=== PATIENT | female | born 1985 | race Caucasian/White ===

== ENCOUNTER → 2023-03-17 09:50 | Outpatient (BNVA) | payer OTHER, SELFPAY | PROVIDERS: PCP Pediatrics; Visit Provider Physician Assistant Surgical | DX: Z13.89 Encounter for screening for other disorder (principal) ==

== ENCOUNTER → 2023-03-19 12:51 | Outpatient (BNVA) | payer OTHER, SELFPAY | PROVIDERS: PCP Pediatrics; Visit Provider Physician Assistant Surgical | DX: Z13.89 Encounter for screening for other disorder (principal) ==

== ENCOUNTER → 2023-04-07 09:57 | Outpatient (REF) | payer OTHER, SELFPAY ==
--- NOTE | 2023-04-07 11:12 | ECG_ITS ---
Test Reason : obesity Blood Pressure : / mmHG Vent. Rate : 072 BPM Atrial Rate : 072 BPM P-R Int : 160 ms QRS Dur : 096 ms QT Int : 404 ms P-R-T Axes : 033 057 014 degrees QTc Int : 442 ms Normal sinus rhythm Minimal voltage criteria for LVH, may be normal variant ( Sokolow-Vaughn ) Nonspecific ST abnormality Abnormal ECG No previous ECGs available Referred By: Veena Vasquez Electronically Signed By:Prashanth Bro
== END ==
LOC: HO.CARD 09:57
PROVIDERS: Absent Provider Physician Assistant Surgical; PCP Pediatrics; Visit Provider Dietitian, Registered
DX: E11.9 Type 2 diabetes mellitus without complications (principal); E55.9 Vitamin D deficiency, unspecified; E78.00 Pure hypercholesterolemia, unspecified; K21.9 Gastro-esophageal reflux disease without esophagitis; K58.9 Irritable bowel syndrome, unspecified; N39.3 Stress incontinence (female) (male); E66.9 Obesity, unspecified
CPT/HCPCS: 93005; 97802

== ENCOUNTER 2023-04-09 10:51 | Outpatient (REF) | payer OTHER, SELFPAY ==
[2023-04-10 13:00] LABS: H Pylori Breath Test Negative (Negative)
== END 2023-04-09 10:52 | disposition home or self-care (01) ==
LOC: HO.LNP 10:51
PROVIDERS: PCP Pediatrics; Visit Provider Physician Assistant Surgical
DX: E66.9 Obesity, unspecified (principal); K21.9 Gastro-esophageal reflux disease without esophagitis; E11.9 Type 2 diabetes mellitus without complications
CPT/HCPCS: 83013

== ENCOUNTER 2023-05-18 08:14 | Outpatient (REF) | payer OTHER, SELFPAY ==
--- NOTE | ~2023-05-18 | FL_ITS ---
EXAMINATION: XR FLUOROSCOPY UPPER GI WITH AIR CLINICAL INFORMATION: Obesity. COMPARISON: None available. TECHNIQUE: Routine upper GI air-contrast study was performed. FINDINGS: Following oral demonstration of thick barium and effervescent granules there is normal propagation bolus from the oral cavity through the pharynx, esophagus into stomach without any evidence of obstruction, narrowing or stricture. On placing patient supine and prone lying the course, caliber and peristalsis of the stomach, duodenal bulb and the sweep is normal. The mucosal pattern of stomach, duodenal bulb and sweep is normal. FLUOROSCOPY TIME: 1.1 minute DOSE AREA PRODUCT: 23.340 uGy-m2 (microgray-meter squared) FL/FL upper GI w air IMPRESSION: Unremarkable upper GI air-contrast study.
--- NOTE | ~2023-05-18 | US_ITS ---
EXAMINATION: US COMPLETE ABDOMEN WITH LIVER ELASTOGRAPHY CLINICAL INFORMATION: Obesity. COMPARISON: None available. TECHNIQUE: Real-time imaging of the abdominal viscera. Noninvasive ultrasound liver fibrosis assessment is performed using [employer] point quantification shear wave elastography (2D-SWE) with a C5-2 MHz transducer. Multiple elastography samples are obtained. FINDINGS: PANCREAS: Normal. The visualized pancreatic head and body are normal in appearance. The remainder of the pancreas is obscured from visualization by the overlying bowel gas. ABDOMINAL AORTA: The proximal, middle, and distal aortic segments are normal in caliber. INFERIOR VENA CAVA: Visualized portions are normal. LIVER: The liver demonstrates normal size, contour and increased echogenicity, with pericholecystic sparing. No focal lesion or intrahepatic biliary duct dilatation. The right lobe measures 19.7 cm in length. The left lobe measures 11.7 cm in length. Portal flow is towards the liver (hepatopetal). Shear wave liver elastography median stiffness is 1.59 m/s (reference: normal median stiffness is 1.3 m/s or less). IQR/median stiffness to assess sampling precision is 0.04 (reference: good quality data set is IQR/median stiffness of 0.15 or less). GALLBLADDER: Normal. The gallbladder is physiologically distended without evidence of stones, sludge, polyps, wall thickening or pericholecystic fluid. COMMON BILE DUCT: Normal in caliber measuring 0.5 cm in diameter. RIGHT KIDNEY: Normal. No hydronephrosis. No renal calculi or focal parenchymal lesions. The kidney measures 12.2 cm in maximum dimension. LEFT KIDNEY: Normal. No hydronephrosis. No renal calculi or focal parenchymal lesions. The kidney measures 11.5 cm in maximum dimension. SPLEEN: Normal. The spleen measures 11.7 cm in maximum dimension. FREE FLUID: None. US/US abdomen comp w elastography IMPRESSION: 1. There is generalized increase in hepatic echotexture, consistent with fatty infiltration or hepatocellular disease. Please correlate clinically. Characteristic pericholecystic sparing favors fatty infiltration. No focal hepatic mass or intrahepatic biliary dilatation is seen. 2. There is hepatomegaly. 3. Liver elastography: In the absence of other known clinical signs, measurements rule out compensated advanced chronic liver disease. If there are known clinical signs, further testing may be needed for confirmation. REFERENCE: Society of Radiologists in Ultrasound Liver Stiffness Thresholds (2020): LIVER STIFFNESS THRESHOLDS: *Liver Stiffness equal or less than 1.3 m/s: High probability of being normal. *Liver Stiffness less than 1.7 m/s: In the absence of other known clinical signs, rules out compensated advanced chronic liver disease. *Liver Stiffness 1.7-2.1 m/s: Suggestive of compensated advanced chronic liver disease but need further test for confirmation. *Liver Stiffness over 2.1 m/s: Rules in compensated advanced chronic liver disease. *Liver Stiffness over 2.4 m/s: Suggestive of clinically significant portal hypertension. QUALITY OF DATA SET: *IQR/Median value equal or less than 0.15 implies a quality data set. *IQR/Median value over 0.15 implies a poor quality data set. SIGNIFICANT CHANGE FROM PRIOR EXAM: Significant change if liver stiffness measurement is 10% or greater from prior exam. OTHER CONSIDERATIONS: The stage of liver fibrosis may be overestimated in the setting of acute hepatitis, liver inflammation, elevated liver function tests, hepatic vascular congestion, obstructive cholestasis, non-fasting state, and infiltrative diseases such as amyloidosis and lymphoma. In some patients with NAFLD, the liver stiffness thresholds for compensated advanced chronic liver disease may be lower. In causes other than viral hepatitis and NAFLD, liver stiffness thresholds are not well established.
== END 2023-05-18 08:15 | disposition home or self-care (01) ==
LOC: HO.US 08:14
PROVIDERS: PCP Pediatrics; Visit Provider Physician Assistant Surgical
DX: E28.2 Polycystic ovarian syndrome (principal); E66.9 Obesity, unspecified; K21.9 Gastro-esophageal reflux disease without esophagitis; K58.9 Irritable bowel syndrome, unspecified; N39.3 Stress incontinence (female) (male); E11.9 Type 2 diabetes mellitus without complications; E78.00 Pure hypercholesterolemia, unspecified
CPT/HCPCS: 74246; 76705; 76981

== ENCOUNTER 2023-06-22 08:20 | Outpatient (AMB) | payer OTHER, SELFPAY ==
--- NOTE | 2023-06-22 08:24 | MHC.OFFVISWM ---
Intake VS Expanded 06/22/23 08:34 Height 5 ft 2 in Weight 195 lb BMI 35.7 BP 122/68 Blood Pressure Location Rt brachial Blood Pressure Position Sitting Pulse 74 Pulse Source Pulse Oximeter Temp 97.5 F Temperature Source Temporal Artery Scan Pulse Oximetry 98 Oxygen Delivery Method Room Air Body Fat 77.6 Body Fat Percentage 39.8 Free Fat Mass 117.2 Muscle Mass 111.4 Visceral Mass 9.0 Water Mass 84.0 BMR 1,630 Intake Visit Reasons: (OV) F/U SWL Allergies acetaminophen [From Percocet] Allergy (Verified 06/22/23 08:33) Hives bupropion [From Wellbutrin] Allergy (Verified 06/22/23 08:33) Hives oxycodone [From Percocet] Allergy (Verified 06/22/23 08:33) Hives pneumococcal vaccine [From Pneumovax-] Adverse Reaction (Mild, Verified 06/22/23 08:33) Migraine Medication List - Last Reconciled 06/22/23 by JALEN Cohn CPAP (CPAP Machine/Device) As directed dexmethylphenidate (Focalin) 30 mg PO DAILY empagliflozin (Jardiance) 10 mg PO DAILY iron,carbonyl-vitamin C 65 mg iron- 125 mg (Vitron-C) 1 tab PO DAILY metformin 1,000 mg PO BID omeprazole 20 mg PO DAILY PRN sertraline (Zoloft) 200 mg PO DAILY [VITAMIN D3 50 mcg PO] HPI HPI Comments History of Present Illness Details The patient is a pleasant 38 year old female who returns to the clinic for pre-operative surgical weight loss management.? They were last seen in the office on 04/26/2023, recorded weight at that time was 186.2 pounds, with a BMI of 34.1.? Today's weight is 195 pounds and BMI is 35.7.? There has been a weight loss of 7.4 pounds since initiating the surgical weight loss program on 03/19/2023 with a total body weight loss of 3.66% Pre op work up completed as follows: SWL classes:? 06/29 BH appts: cleared 04/21? ?? RD appts: cleared Labs: 03/25, Vit D 27.9, fasting glucose 152, CRP 1.9, albumin 5.1, AST 55, ALT 49, HgbA1C 7.3, total chol 249, TG 215, HDL 32, LDL 174 H. pylori: negative CXR: 03/25, no acute cardiopulmonary process EKG: Normal sinus rhythm, Minimal voltage criteria for LVH, may be normal variant, Nonspecific ST abnormality ABD U/S: 05/18, fatty infiltration UGI: 05/18, unremarkable Pt reports that her dog recently had to be put to sleep, was very unexpected. Did not follow the plan. Has not been monitoring blood sugars. Got a bad yeast infection and stopped taking Jardiance, seeing PCP next week and will discuss. Current meal plan includes: 2 Premier Protein shakes ([employer], [employer], [employer]), (1 scoop in 8oz vanilla unsweetened almond milk each) at 7-9am and 2-4pm, and 2 protein bars (Pure or FitCrunch) at 10:30am-12:30pm and 7-9pm per day and dinner at 5:30pm (6 forks of protein and up to 12 forks of salad/vegetables).?Sometimes will have a Hungarian yogurt cup in place of one protein bar. Drinking adequate water- at least 50oz Current exercise plan includes: hiking, treadmill- 3.3 mph with changing inclines 3-10, 30-60min?? has been exercising less on treadmill but bought exercise bike, has been using that ? PFSH Surgical History History of removal of ovarian cyst History of surgical removal of ganglion cyst Hx of tonsillectomy Hx of wisdom tooth extraction Family History Mother Hypertension High cholesterol Breast cancer Macular degeneration Father Behcet's disease History of multiple strokes Brother TBI (traumatic brain injury) Osteoporosis Brother No problems noted. Brother No problems noted. Daughter PFAPA syndrome Son Stroke (cerebrum) Social History Alcohol intake: never Patient Tobacco Use Status: Never used Tobacco Physical Exam Vital Signs: Last Vital Signs Temp 97.5 F 06/22/23 08:34 Pulse 74 06/22/23 08:34 BP 122/68 06/22/23 08:34 Pulse Ox 98 06/22/23 08:34 Oxygen Delivery Method Room Air 06/22/23 08:34 BMI result Body Mass Index 35.7 Assessment & Plan Assessment & Plan (1) Obesity: Code(s): E66.9 - Obesity, unspecified (2) Type 2 diabetes mellitus: Code(s): E11.9 - Type 2 diabetes mellitus without complications (3) High cholesterol: Code(s): E78.00 - Pure hypercholesterolemia, unspecified (4) Sleep apnea: Code(s): G47.30 - Sleep apnea, unspecified (5) PCOS (polycystic ovarian syndrome): Code(s): E28.2 - Polycystic ovarian syndrome (6) GERD (gastroesophageal reflux disease): Code(s): K21.9 - Gastro-esophageal reflux disease without esophagitis (7) Generalized anxiety disorder: Code(s): F41.1 - Generalized anxiety disorder (8) Vitamin D deficiency: Code(s): E55.9 - Vitamin D deficiency, unspecified (9) IBS (irritable bowel syndrome): Code(s): K58.9 - Irritable bowel syndrome without diarrhea Plan Pt will return to meal plan and increase exercise as before. All preop testing completed. Will discuss borderline EKG results with Dr. Mckeon to determine if pt should have further workup. Once she resumes weight loss and gets closer to goal of 10% weight loss can schedule visit with Dr Han HIGGINBOTHAM 2 weeks per pt preference. Patient is obese and is not considered stable at this time. I spent a total of 30 minutes reviewing/updating records, examining the patient and counseling the patient on weight management as detailed above. Coding Level of Care Code Est Pt Level 4 (97769) Diagnoses Obesity E66.9 Type 2 diabetes mellitus E11.9 High cholesterol E78.00 Sleep apnea G47.30 PCOS (polycystic ovarian syndrome) E28.2 GERD (gastroesophageal reflux disease) K21.9 Generalized anxiety disorder F41.1 Vitamin D deficiency E55.9 IBS (irritable bowel syndrome) K58.9
[2023-06-22 08:34] VITALS: BP 122/68; PULSE 74; TEMP 36.4; O2SAT 98; BMI 35.7
== END 2023-06-22 09:08 | disposition home or self-care (01) ==
PROVIDERS: PCP Pediatrics; Visit Provider Physician Assistant Surgical
DX: E66.9 Obesity, unspecified (principal); Z68.35 Body mass index [BMI] 35.0-35.9, adult; E11.9 Type 2 diabetes mellitus without complications; G47.30 Sleep apnea, unspecified
CPT/HCPCS: 99214

== ENCOUNTER → 2023-07-09 09:00 | Outpatient (REF) | payer OTHER, SELFPAY ==
--- NOTE | 2023-07-09 09:02 | CA_ITS ---
Acquisition Time: 2023-07-09 09:44:55 Total Exercise Time: 00:09:16 Test Indications: ABNORMAL EKG Medications: Protocol: SELMA Max HR: 179 BPM 98% of Pred: 182 BPM Max BP: 160/070 mmHG Max Work Load: 10.5 METS Exercuse stress test exercise 9 min 16 sec of Sel[place] protocol achieving 96% MPHR and 10.5 METs, without anginal symptoms, without arrhythmias, with normotensive response to exercise, without EKG changes. Test reviewed with Dr. Grier Referred By: Veena Vasquez Overread By: Zonia Foss
== END ==
LOC: HO.CARD 09:00
PROVIDERS: PCP Pediatrics; Visit Provider Physician Assistant Surgical
DX: R94.31 Abnormal electrocardiogram [ECG] [EKG] (principal)
CPT/HCPCS: 93017

== ENCOUNTER → 2023-07-09 09:02 | Outpatient (BNV) | payer OTHER, SELFPAY | PROVIDERS: PCP Pediatrics; Visit Provider Nurse Practitioner | DX: R94.31 Abnormal electrocardiogram [ECG] [EKG] (principal) | CPT/HCPCS: 93016; 93018 ==

== ENCOUNTER 2023-08-05 11:23 | Outpatient (AMB) | payer OTHER, SELFPAY ==
--- NOTE | 2023-08-05 11:42 | MHC.OFFVIS ---
Intake Intake Visit Reasons: (OV) F/U SWL Allergies acetaminophen [From Percocet] Allergy (Verified 06/22/23 08:33) Hives bupropion [From Wellbutrin] Allergy (Verified 06/22/23 08:33) Hives oxycodone [From Percocet] Allergy (Verified 06/22/23 08:33) Hives pneumococcal vaccine [From Pneumovax-23] Adverse Reaction (Mild, Verified 06/22/23 08:33) Migraine PFSH Surgical History History of removal of ovarian cyst History of surgical removal of ganglion cyst Hx of tonsillectomy Hx of wisdom tooth extraction Family History Mother Hypertension High cholesterol Breast cancer Macular degeneration Father Behcet's disease History of multiple strokes Brother TBI (traumatic brain injury) Osteoporosis Brother No problems noted. Brother No problems noted. Daughter PFAPA syndrome Son Stroke (cerebrum) Social History Alcohol intake: never Patient Tobacco Use Status: Never used Tobacco Coding
--- NOTE | 2023-08-05 11:43 | A.OFFVIS_ITS ---
Intake VS Expanded 08/05/23 11:57 Height 5 ft 2 in Weight 199 lb 3.2 oz BMI 36.4 BP 131/71 Blood Pressure Location Rt brachial Blood Pressure Position Sitting Pulse 73 Pulse Source Pulse Oximeter Temp 97.5 F Temperature Source Temporal Artery Scan Pulse Oximetry 97 Oxygen Delivery Method Room Air Body Fat 77.6 Body Fat Percentage 39.0 Free Fat Mass 121.4 Muscle Mass 115.4 Visceral Mass 9.0 Water Mass 86.8 BMR 1,682 Intake Visit Reasons: (OV) F/U SWL Allergies acetaminophen [From Percocet] Allergy (Verified 08/05/23 11:46) Hives bupropion [From Wellbutrin] Allergy (Verified 08/05/23 11:46) Hives oxycodone [From Percocet] Allergy (Verified 08/05/23 11:46) Hives pneumococcal vaccine [From Pneumovax-] Adverse Reaction (Mild, Verified 08/05/23 11:46) Migraine Medication List - Last Reconciled 08/05/23 by JALEN Cohn CPAP (CPAP Machine/Device) As directed dexmethylphenidate (Focalin) 30 mg PO DAILY empagliflozin (Jardiance) 10 mg PO DAILY iron,carbonyl-vitamin C 65 mg iron- 125 mg (Vitron-C) 1 tab PO DAILY metformin 1,000 mg PO BID omeprazole 20 mg PO DAILY PRN sertraline (Zoloft) 200 mg PO DAILY [VITAMIN D3 50 mcg PO] HPI HPI Comments History of Present Illness Details The patient is a pleasant 38 year old female who returns to the clinic for pre-operative surgical weight loss management.? They were last seen in the office on 06/22/2023, recorded weight at that time was 195 pounds.? Today's weight is 199.2 pounds and BMI is 36.4.? There has been a weight loss of 3.2 pounds since initiating the surgical weight loss program on 03/19/2023 with a total body weight loss of 1.58%. Reports that since last visit she was diagnosed with COVID, and daughter got a bad staph infection. Started fostering a dog. Pre op work up completed as follows: SWL classes:? 06/29 BH appts: cleared 04/21? ?? RD appts: cleared Labs: 5/4, Vit D 27.9, fasting glucose 152, CRP 1.9, albumin 5.1, AST 55, ALT 49, HgbA1C 7.3, total chol 249, TG 215, HDL 32, LDL 174 H. pylori: negative CXR: 03/25, no acute cardiopulmonary process EKG: Normal sinus rhythm, Minimal voltage criteria for LVH, may be normal variant, Nonspecific ST abnormality ABD U/S: 05/18, fatty infiltration UGI: 05/18, unremarkable Stress test 07/09: Exercise stress test exercise 9 min 16 sec of Jair protocol achieving 96% MPHR, and 10.5 METs, without anginal symptoms, without arrhythmias, with normotensive response to exercise, without EKG changes. Current meal plan includes: 2 Premier Protein shakes ([employer], [employer], [employer]), (1 scoop in 8oz vanilla unsweetened almond milk each) at 7-9am and 2-4pm, and 2 protein bars (Pure or FitCrunch) at 10:30am-12:30pm and 7-9pm per day and dinner at 5:30pm (6 forks of protein and up to 12 forks of salad/vegetables).?Sometimes will have a Persian yogurt cup in place of one protein bar. Drinking adequate water- at least 50oz Current exercise plan includes: hiking, treadmill- 3.3 mph with changing inclines 3-10, 30-60min, has a bike but having some knee issues so hasn't been using PFSH Surgical History Hx of wisdom tooth extraction History of surgical removal of ganglion cyst Hx of tonsillectomy History of removal of ovarian cyst Family History Mother Hypertension High cholesterol Breast cancer Macular degeneration Father Behcet's disease History of multiple strokes Brother TBI (traumatic brain injury) Osteoporosis Brother No problems noted. Brother No problems noted. Daughter PFAPA syndrome Son Stroke (cerebrum) Social History Alcohol intake: never Patient Tobacco Use Status: Never used Tobacco Physical Exam Vital Signs: Last Vital Signs Temp 97.5 F 08/05/23 11:57 Pulse 73 08/05/23 11:57 BP 131/71 08/05/23 11:57 Pulse Ox 97 08/05/23 11:57 Oxygen Delivery Method Room Air 08/05/23 11:57 BMI result Body Mass Index 36.4 Assessment & Plan Assessment & Plan (1) Obesity: Code(s): E66.9 - Obesity, unspecified (2) Type 2 diabetes mellitus: Code(s): E11.9 - Type 2 diabetes mellitus without complications (3) Sleep apnea: Code(s): G47.30 - Sleep apnea, unspecified (4) High cholesterol: Code(s): E78.00 - Pure hypercholesterolemia, unspecified Plan Per pt preference will adjust meal plan to the followin:30am-9:30am Premier shake with 1 scoop in 8oz unsweetened almond milk10:30am- 12:30pm Persian yogurt 2-4pm bar 5:30pm meal- 6 forks of protein, up to 12 forks salad/veg 7-9pm bar or yogurt She is going on a cruise August 28- so we discussed ways to ensure adequate protein intake. F/U 3-4 weeks, will add pt to my cancellation list. Patient is obese and is not considered stable at this time. I spent a total of 30 minutes reviewing/updating records, examining the patient and counseling the patient on weight management as detailed above. Coding Level of Care Code Est Pt Level 4 (22509) Diagnoses Obesity E66.9 Type 2 diabetes mellitus E11.9 Sleep apnea G47.30 High cholesterol E78.00
[2023-08-05 11:57] VITALS: BP 131/71; PULSE 73; TEMP 36.4; O2SAT 97; BMI 36.4
== END 2023-08-05 12:47 | disposition home or self-care (01) ==
PROVIDERS: PCP Pediatrics; Visit Provider Physician Assistant Surgical
DX: E66.9 Obesity, unspecified (principal); Z68.36 Body mass index [BMI] 36.0-36.9, adult; E11.9 Type 2 diabetes mellitus without complications; G47.30 Sleep apnea, unspecified; E78.00 Pure hypercholesterolemia, unspecified
CPT/HCPCS: 99214

== ENCOUNTER 2023-09-14 11:26 | Outpatient (AMB) | payer OTHER, SELFPAY ==
--- NOTE | 2023-09-14 11:28 | MHC.OFFVISWM ---
Intake VS Expanded 09/14/23 11:38 BP 130/70 Blood Pressure Location Rt brachial Blood Pressure Position Sitting Pulse 93 Pulse Source Pulse Oximeter Temp 97.6 F Temperature Source Temporal Artery Scan Pulse Oximetry 96 Oxygen Delivery Method Room Air Height 5 ft 2 in Weight 198 lb 3.2 oz BMI 36.2 Body Fat % 40.7 Body Fat Mass 80.6 Fat Free Mass 117.6 Visceral Fat Rating 9.0 Body Water % 42.4 Body Water Mass 84.0 Muscle Mass/Score 111.6 Basal Metabolic Rate/Score 1,638 Intake Visit Reasons: (OV) F/U SWL Allergies acetaminophen [From Percocet] Allergy (Verified 08/05/23 11:46) Hives bupropion [From Wellbutrin] Allergy (Verified 08/05/23 11:46) Hives oxycodone [From Percocet] Allergy (Verified 08/05/23 11:46) Hives pneumococcal vaccine [From Pneumovax-] Adverse Reaction (Mild, Verified 08/05/23 11:46) Migraine Medication List - Last Reconciled 09/14/23 by JALEN Cohn CPAP (CPAP Machine/Device) As directed dexmethylphenidate (Focalin) 30 mg PO DAILY empagliflozin (Jardiance) 10 mg PO DAILY iron,carbonyl-vitamin C 65 mg iron- 125 mg (Vitron-C) 1 tab PO DAILY metformin 1,000 mg PO BID omeprazole 20 mg PO DAILY PRN semaglutide (Ozempic) 0.25 mg subcut QWEEK sertraline (Zoloft) 200 mg PO DAILY [VITAMIN D3 50 mcg PO] HPI HPI Comments History of Present Illness Details The patient is a pleasant 38 year old female who returns to the clinic for pre-operative surgical weight loss management.? They were last seen in the office on 08/05/2023, recorded weight at that time was 199.2 pounds.? Today's weight is 198.2 pounds and BMI is 36.3.? There has been a weight loss of 4.2 pounds since initiating the surgical weight loss program on 03/19/2023 with a total body weight loss of 2.08%. Returned from cruise to [facility]. Was started on Ozempic 4 weeks ago, dose planning to increase on Wednesday. Pre op work up completed as follows: SWL classes:? 06/29 appts: cleared 04/21? ?? RD appts: cleared Labs: 03/25, Vit D 27.9, fasting glucose 152, CRP 1.9, albumin 5.1, AST 55, ALT 49, HgbA1C 7.3, total chol 249, TG 215, HDL 32, LDL 174 H. pylori: negative CXR: 03/25, no acute cardiopulmonary process EKG: Normal sinus rhythm, Minimal voltage criteria for LVH, may be normal variant, Nonspecific ST abnormality ABD U/S: 05/18, fatty infiltration UGI: 05/18, unremarkable Stress test 07/09: Exercise stress test exercise 9 min 16 sec of Jair protocol achieving 96% MPHR, and 10.5 METs, without anginal symptoms, without arrhythmias, with normotensive response to exercise, without EKG changes. Current meal plan includes: 2 Premier Protein shakes ([employer], [employer], [employer]), (1 scoop in 8oz vanilla unsweetened almond milk each) at 7-9am and 2-4pm, and 2 protein bars (Pure or FitCrunch) at 10:30am-12:30pm and 7-9pm per day and dinner at 5:30pm (6 forks of protein and 6 forks of salad/vegetables).? Drinking adequate water- at least 50oz Current exercise plan includes: hiking, treadmill- 3.3 mph with changing inclines 3-10, 30-60min, has a bike but having some knee issues so hasn't been using. Thinks treadmill workout burned about 220 calories. Also walks dog daily [facility] Surgical History Hx of wisdom tooth extraction History of surgical removal of ganglion cyst Hx of tonsillectomy History of removal of ovarian cyst Family History Mother Hypertension High cholesterol Breast cancer Macular degeneration Father Behcet's disease History of multiple strokes Brother TBI (traumatic brain injury) Osteoporosis Brother No problems noted. Brother No problems noted. Daughter PFAPA syndrome Son Stroke (cerebrum) Social History Alcohol intake: never Patient Tobacco Use Status: Never used Tobacco Assessment & Plan Assessment & Plan (1) Obesity: Code(s): E66.9 - Obesity, unspecified (2) Type 2 diabetes mellitus: Code(s): E11.9 - Type 2 diabetes mellitus without complications (3) High cholesterol: Code(s): E78.00 - Pure hypercholesterolemia, unspecified (4) Sleep apnea: Code(s): G47.30 - Sleep apnea, unspecified (5) GERD (gastroesophageal reflux disease): Code(s): K21.9 - Gastro-esophageal reflux disease without esophagitis (6) Vitamin D deficiency: Code(s): E55.9 - Vitamin D deficiency, unspecified (7) Abnormal EKG: Code(s): R94.31 - Abnormal electrocardiogram [ECG] [EKG] (8) PCOS (polycystic ovarian syndrome): Code(s): E28.2 - Polycystic ovarian syndrome Plan Discussed the importance of adherence to the meal plan to support the weight loss needed to achieve 10% TBWL. Reinforced meal plan: 2 Premier Protein shakes ([employer], [employer], [employer]), (1 scoop in 8oz vanilla unsweetened almond milk each) at 7-9am and 2-4pm, and 2 protein bars ([employer]Crunch) at 10:30am-12:30pm and 7-9pm per day and dinner at 5:30pm (6 forks of protein and 6 forks of salad/vegetables). No yogurt Needs to exercise for 2000 calories/ week. Track calories burned while walking dog to make sure her total calorie burn each day is close to 300. We discussed that she needs to be committed to the meal and exercise plan. If she can demonstrate acceptable weight loss between now and next visit, can schedule first visit with Dr. Mckeon as all of her preop testing is complete. She is aware that she should discuss Ozempic use with Dr. Mckeon at appt. RTC 1 month. Texted meal plan to pt. She will come in for weekly weight checks. Encouraged her to reach out to me between appts with any questions. Patient is obese and is not considered stable at this time. I spent a total of 30 minutes reviewing/updating records, examining the patient and counseling the patient on weight management as detailed above. Coding Level of Care Code Est Pt Level 4 (58328) Diagnoses Obesity E66.9 Type 2 diabetes mellitus E11.9 High cholesterol E78.00 Sleep apnea G47.30 GERD (gastroesophageal reflux disease) K21.9 Vitamin D deficiency E55.9 Abnormal EKG R94.31 PCOS (polycystic ovarian syndrome) E28.2
[2023-09-14 11:38] VITALS: BP 130/70; PULSE 93; TEMP 36.4; O2SAT 96; BMI 36.2
== END 2023-09-14 12:44 | disposition home or self-care (01) ==
PROVIDERS: PCP Pediatrics; Visit Provider Physician Assistant Surgical
DX: E66.9 Obesity, unspecified (principal); Z68.36 Body mass index [BMI] 36.0-36.9, adult; E78.00 Pure hypercholesterolemia, unspecified; G47.30 Sleep apnea, unspecified; K21.9 Gastro-esophageal reflux disease without esophagitis; E55.9 Vitamin D deficiency, unspecified; R94.31 Abnormal electrocardiogram [ECG] [EKG]; E28.2 Polycystic ovarian syndrome
CPT/HCPCS: 99214

== ENCOUNTER 2023-10-05 13:31 | Outpatient (AMB) | payer OTHER, SELFPAY ==
--- NOTE | 2023-10-05 13:35 | A.OFFVIS_ITS ---
Intake VS Expanded 10/05/23 13:46 BP 115/67 Blood Pressure Location Rt brachial Blood Pressure Position Sitting Pulse 102 H Pulse Source Pulse Oximeter Temp 97.0 F Temperature Source Tympanic Pulse Oximetry 98 Oxygen Delivery Method Room Air Height 5 ft 2 in Weight 193 lb BMI 35.3 Body Fat % 40.1 Body Fat Mass 77.4 Fat Free Mass 115.6 Visceral Fat Rating 9.0 Body Water % 42.9 Body Water Mass 82.6 Muscle Mass/Score 109.6 Basal Metabolic Rate/Score 1,608 Intake Visit Reasons: (OV) F/U SWL Allergies acetaminophen [From Percocet] Allergy (Verified 08/05/23 11:46) Hives bupropion [From Wellbutrin] Allergy (Verified 08/05/23 11:46) Hives oxycodone [From Percocet] Allergy (Verified 08/05/23 11:46) Hives pneumococcal vaccine [From Pneumovax-] Adverse Reaction (Mild, Verified 08/05/23 11:46) Migraine Medication List - Last Reconciled 10/05/23 by JALEN Cohn CPAP (CPAP Machine/Device) As directed iron,carbonyl-vitamin C 65 mg iron- 125 mg (Vitron-C) 1 tab PO DAILY metformin 1,000 mg PO BID omeprazole 20 mg PO DAILY PRN sertraline (Zoloft) 200 mg PO DAILY [VITAMIN D3 50 mcg PO] HPI HPI Comments History of Present Illness Details The patient is a pleasant 38 year old female who returns to the clinic for pre-operative surgical weight loss management.? They were last seen in the office on 09/14/2023, recorded weight at that time was 198.2 pounds.? Today's weight is 193 pounds and BMI is 35.3.? There has been a weight loss of 9.4 pounds since initiating the surgical weight loss program on 03/19/2023 with a total body weight loss of 4.64%. She continues on Ozempic. Since last visit pt developed abdominal pain and vomiting and had to go to [facility] ED. She was diagnosed with gastritis or gastroparesis due to Ozempic. Was put on the BRAT diet for 1 week to recover (rice, toast/bread). Has been able to restart her high protein meal plan. Pre op work up completed as follows: SWL classes:? 06/29 appts: cleared 04/21? ?? RD appts: cleared Labs: 03/25, Vit D 27.9, fasting glucose 152, CRP 1.9, albumin 5.1, AST 55, ALT 49, HgbA1C 7.3, total chol 249, TG 215, HDL 32, LDL 174 H. pylori: negative CXR: 03/25, no acute cardiopulmonary process EKG: Normal sinus rhythm, Minimal voltage criteria for LVH, may be normal variant, Nonspecific ST abnormality ABD U/S: 05/18, fatty infiltration UGI: 05/18, unremarkable Stress test 07/09: Exercise stress test exercise 9 min 16 sec of Jair protocol achieving 96% MPHR, and 10.5 METs, without anginal symptoms, without arrhythmias, with normotensive response to exercise, without EKG changes. Current meal plan includes: 2 Premier Protein shakes (1 scoop in 8oz vanilla unsweetened almond milk each) at 7-9am and 2-4pm 2 protein bars (FitCrunch) at 10:30am-12 :30pm and 7-9pm dinner at 5:30pm (6 forks of protein and 6 forks of salad/vegetables) Current exercise plan includes: treadmill, 1 hour for 450 calories, 4-5x/week. hikes, and walks dog daily PFSH Surgical History Hx of wisdom tooth extraction History of surgical removal of ganglion cyst Hx of tonsillectomy History of removal of ovarian cyst Family History Mother Hypertension High cholesterol Breast cancer Macular degeneration Father Behcet's disease History of multiple strokes Brother TBI (traumatic brain injury) Osteoporosis Brother No problems noted. Brother No problems noted. Daughter PFAPA syndrome Son Stroke (cerebrum) Social History Alcohol intake: never Patient Tobacco Use Status: Never used Tobacco Assessment & Plan Assessment & Plan (1) Obesity: Code(s): E66.9 - Obesity, unspecified (2) High cholesterol: Code(s): E78.00 - Pure hypercholesterolemia, unspecified (3) Type 2 diabetes mellitus: Code(s): E11.9 - Type 2 diabetes mellitus without complications (4) Sleep apnea: Code(s): G47.30 - Sleep apnea, unspecified (5) PCOS (polycystic ovarian syndrome): Code(s): E28.2 - Polycystic ovarian syndrome (6) GERD (gastroesophageal reflux disease): Code(s): K21.9 - Gastro-esophageal reflux disease without esophagitis (7) Abnormal EKG: Code(s): R94.31 - Abnormal electrocardiogram [ECG] [EKG] Plan Pt has done well in being more consistent with weight loss since last visit. All preop testing complete. Will refer to Dr. Mckeon for next visit for discussion of surgery. Pt aware that she will have to discuss Ozempic use with Dr. Mckeon. Patient is obese and is not considered stable at this time. I spent a total of 30 minutes reviewing/updating records, examining the patient and counseling the patient on weight management as detailed above. Coding Level of Care Code Est Pt Level 4 (54589) Diagnoses Obesity E66.9 High cholesterol E78.00 Type 2 diabetes mellitus E11.9 Sleep apnea G47.30 PCOS (polycystic ovarian syndrome) E28.2 GERD (gastroesophageal reflux disease) K21.9 Abnormal EKG R94.31
[2023-10-05 13:46] VITALS: BP 115/67; PULSE 102; TEMP 36.1; O2SAT 98; BMI 35.3
== END 2023-10-05 14:03 | disposition home or self-care (01) ==
PROVIDERS: PCP Pediatrics; Visit Provider Physician Assistant Surgical
DX: E66.9 Obesity, unspecified (principal); Z68.35 Body mass index [BMI] 35.0-35.9, adult; E78.00 Pure hypercholesterolemia, unspecified; E11.9 Type 2 diabetes mellitus without complications; G47.30 Sleep apnea, unspecified; E28.2 Polycystic ovarian syndrome; K21.9 Gastro-esophageal reflux disease without esophagitis; R94.31 Abnormal electrocardiogram [ECG] [EKG]
CPT/HCPCS: 99214

== ENCOUNTER 2023-10-25 08:15 | Outpatient (AMB) | payer OTHER, SELFPAY ==
--- NOTE | 2023-10-25 09:58 | A.OFFVIS_ITS ---
Intake VS Expanded 10/25/23 10:21 Height 5 ft 2 in Weight 190 lb 4 oz BMI 34.8 Body Fat % 44.2 Body Fat Mass 84.1 Fat Free Mass 106.2 Visceral Fat Rating 17 Body Water % 38.3 Body Water Mass 72.9 Basal Metabolic Rate/Score 1,395 Intake Visit Reasons: TV Consult/Transfer Veena Allergies acetaminophen [From Percocet] Allergy (Verified 10/25/23 09:58) Hives bupropion [From Wellbutrin] Allergy (Verified 10/25/23 09:58) Hives oxycodone [From Percocet] Allergy (Verified 10/25/23 09:58) Hives pneumococcal vaccine [From Pneumovax-] Adverse Reaction (Mild, Verified 10/25/23 09:58) Migraine Medication List - Last Reconciled 10/25/23 by David Hutchins MD CPAP (CPAP Machine/Device) As directed iron,carbonyl-vitamin C 65 mg iron- 125 mg (Vitron-C) 1 tab PO DAILY metformin 1,000 mg PO BID omeprazole 20 mg PO DAILY PRN sertraline (Zoloft) 200 mg PO DAILY [VITAMIN D3 50 mcg PO] HPI TV Consult/Transfer Veena HPI Details Start time: 9.37am, End time: 10.37am ?I spent 50 minutes speaking with the patient on the phone plus an additional 10 minutes reviewing and updating records for a total of 60 minutes HPI Comments History of Present Illness Details Overall weight loss: 12lbs, or 5.93% TBWL Is doing 2 Premier protein shakes (1 scoop in almond milk) 8-10am and 2pm-4pm, 2 Fit Crunch bars at 10.30-12.30pm and 7-9pm, dinner at 6pm (6 forks of protein and 6 forks of salad or vegetables) Exercise: is doing treadmill (speed: 3-3.5mph and incline 3-10) for 250-450 calories x 4-5 per week [facility] Medical History (Updated 10/25/23 @ 10:25 by David Hutchins MD) Anxiety Depression Obstructive sleep apnea on CPAP Surgical History Hx of wisdom tooth extraction History of surgical removal of ganglion cyst Hx of tonsillectomy History of removal of ovarian cyst Family History Mother Hypertension High cholesterol Breast cancer Macular degeneration Father Behcet's disease History of multiple strokes Brother TBI (traumatic brain injury) Osteoporosis Brother No problems noted. Brother No problems noted. Daughter PFAPA syndrome Son Stroke (cerebrum) Social History Alcohol intake: never Patient Tobacco Use Status: Never used Tobacco Assessment & Plan Assessment & Plan (1) Obesity: Code(s): E66.9 - Obesity, unspecified Qualifiers: Obesity type: due to excess calories Obesity classification: adult class 2 (BMI 35 - 39.9) Serious obesity comorbidity presence: with serious comorbidity Body mass index: BMI 35.0-35.9 Qualified Code(s): E66.01 - Morbid (severe) obesity due to excess calories; Z68.35 - Body mass index [BMI] 35.0- 35.9, adult Plan: 1. Plan for lap sleeve gastrectomy including upper GI endoscopy. All tests has been completed and reviewed and the patient is cleared for the surgery. ?If diaphragmatic or ventral hernias are present at time of surgery, these will be repaired laparoscopically as well. 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 I emphasized the importance of close follow-up, adherence to instructions and good communication. So far she has proven to be an excellent communicator and very compliant with all our directions accomplishing a great weight loss. I believe that she is an excellent candidate and she is ready. 2. Change nutritional plan to one Premier shake (HALF scoop in 8oz almond milk), another Premier protein shake (1 scoop in almond milk), 2 Fit Crunch bars and dinner at 6pm (6 forks of protein and 6 forks of salad or vegetables) 3. Exercise: continue treadmill with an incline of 4.0 and speed of 4.0. Increase incline by 1 every 3 min to a max incline of 10.0, stay 3min at 10.0 and then return to 4.0 and repeat same steps until calorie goal is met. Goal is to burn 2000 calories per week on exercise, which means either 300 calories daily, or 400 calories 5 days per week, or 500 calories 4 days per week, or 650 calories 3 days per week. 4. Continue to send me weight measurements weekly on Mondays Telehealth Telehealth Location of provider rendering services: practice address Location of patient: address on file Patient Identification confirmed using: Name, : Yes Telehealth method: voice only Patient verbally consented to treatment: Yes Patient verbally consented to billing insurance company: Yes Patient informed of any privacy concerns related to visit: Yes Minutes spent on Phone/Video with Pt.: 60 Coding Level of Care Code Tele Est Pt Level 5 (77211) Diagnoses Class 2 severe obesity due to excess calories with serious comorbidity and body mass index (BMI) of 35.0 to 35.9 in adult E66.01; Z68.35 Obesity type: due to excess calories Obesity classification: adult class 2 (BMI 35 - 39.9) Serious obesity comorbidity presence: with serious comorbidity Body mass index: BMI 35.0-35.9 Time Spent (min) 60
[2023-10-25 10:21] VITALS: BMI 34.8
== END 2023-10-25 10:38 | disposition home or self-care (01) ==
LOC: HO.HBS 08:15
PROVIDERS: PCP Pediatrics; Visit Provider Surgery
DX: E66.01 Morbid (severe) obesity due to excess calories (principal); Z68.34 Body mass index [BMI] 34.0-34.9, adult
CPT/HCPCS: 99215

== ENCOUNTER 2023-11-16 08:02 | Day surgery (SDC) | payer OTHER, SELFPAY ==
[2023-10-28 11:00] VITALS: BMI 34.6
[2023-10-29 09:17] LABS: MANUAL DIFF FLAG NO
[2023-10-29 10:02] LABS: Basophils Absolute Auto 0.1 X10*3/uL (0.0-0.2); Basophils Percent Auto 0.7 % (0-2); Eosinophils Absolute Auto 0.1 X10*3/uL (0.0-0.4); Eosinophils Percent Auto 1.1 % (0-4); Hemoglobin 12.3 g/dl (12.0-16.0); Imm Gran Abs Auto 0.04 X10*3/uL (0.00-0.03); Imm Gran Pct Auto 0.4 % (0.0-0.4); Lymphocytes Absolute Auto 2.6 X10*3/uL (1.2-4.9); Lymphocytes Percent Auto 24.7 % (20-40); Mean Corpuscular HGB Conc 33.2 g/dl (31.0-35.0); Mean Corpuscular Hemoglobin 29.3 pg (27.0-33.0); Mean Corpuscular Volume 88.1 fL (80.0-98.0); Mean Platelet Volume 12.4 fL (9.4-12.3); Monocytes Absolute Auto 0.6 X10*3/uL (0.1-1.2); Monocytes Percent Auto 5.4 % (2-11); Neutrophils Percent Auto 67.7 % (45-73); Platelet Count 248 X10*3/uL (160-400); Prothrombin Time 12.6 SEC (11.1-13.3); Red Cell Distribution Width 13.7 % (11.0-16.0); White Blood Count 10.4 X10*3/uL (4.8-10.8)
[2023-10-29 10:05] LABS: Partial Thromboplastin Time 32.7 SEC (26.0-36.4)
[2023-10-29 10:10] LABS: Estimated Average Glucose 140 mg/dL; Hemoglobin A1c % 6.5 % (<6.0)
[2023-10-29 11:12] LABS: Alanine Aminotransferase 21 U/L (0-31); Albumin Level 4.7 g/dL (3.5-5.0); Alkaline Phosphatase 70 U/L (39-117); Anion Gap 15 (12-20); Aspartate Amino Transferase 30 U/L (5-31); Bilirubin Total 0.4 mg/dL (0.0-1.0); Blood Urea Nitrogen 14 mg/dL (9-16); C Reactive Protein 1.55 mg/dL (< or = 0.50); Calcium 9.4 mg/dL (8.4-10.2); Carbon Dioxide 27 mmol/L (22-29); Chloride 102 mmol/L (96-108); Cholesterol 189 mg/dL (<200); Creatinine Clr Calc Pharmacy 96.8; Estimated Glomerular Filt Rate > 60; Glucose Random 120 mg/dL (60-115); HDL Cholesterol 31 mg/dL (>40); LDL Cholesterol Calculated 124 mg/dL (<100); Potassium 3.9 mmol/L (3.3-5.1); Sodium 140 mmol/L (135-145); Total Protein 8.2 g/dL (6.5-8.0); Triglycerides 174 mg/dL (<150)
[2023-10-29 11:14] LABS: Insulin 10 uU/mL (2-29); TSH reflex Free T4 0.48 uIU/mL (0.32-4.0)
--- NOTE | 2023-10-30 12:18 | MHC.SHP ---
Pre-Procedural Eval Section A Date of Service: 10/30/23 The patient is an INPATIENT: No The History & Physical has been completed within 30 days and I have reviewed it.: Yes Section B Chief Complaint: Obesity, unspecified Relevant Family History (Specify if Yes): No Relevant Social History: None Present Medications: None Medical History: No relevant PMH History of Previous Operations: No relevant previous surgery Allergies: Allergies Allergy/AdvReac Type Severity Reaction Status Date / Time bupropion [From Wellbutrin] Allergy Intermediate Hives Verified 10/28/23 10:57 oxycodone [From Percocet] Allergy Intermediate Hives, rash Verified 10/28/23 10:57 pneumococcal vaccine AdvReac Severe Migraine, Verified 10/28/23 10:57 [From Pneumovax-] weakness adhesive tape AdvReac Intermediate burning Verified 10/28/23 10:57 and redness of Skin Review of Systems Sugical H&P ROS: Negative: Constitution, Cardiovascular, Respiratory, Neurological, Psychiatric, Hem-Onc, Allergic/Immunologic, Gastrointestinal, Genitourinary, Musculoskeletal, Integumentary, Endocrine and Eyes/Ears/Nose/Throat Exam Surgical H&P Exam: Normal: HEENT, Normal: Heart, Normal: Lungs, Normal: Extremities, Normal: Abdomen, Normal: Skin and Normal: Neurological Plan Diagnosis/Plan: Unchanged I have reviewed the history and physical and performed a pertinent physical examination on my patient. No changes have occurred unless specified. Time Spent With Patient Time: Total time managing care of this patient today ____ minutes.
--- NOTE | 2023-11-01 08:25 | HO.ANESPROP2 ---
HPI - Anesthesia Eval Consult details Narrative: 38yo F for Gastrectomy Sleeve,EGD,poss diaphragmatic hernia,poss ventral hernia,poss open, PMFSH Active Problems Active Problems: All Active Problems (Updated 10/28/23 @ 15:38 by Juliana Moreno RN) BMI 35.0-35.9,adult (Acute) Abnormal EKG (Acute) GERD (gastroesophageal reflux disease) (Acute) PCOS (polycystic ovarian syndrome) (Acute) ADHD (Acute) Generalized anxiety disorder (Acute) Rosacea (Acute) IBS (irritable bowel syndrome) (Acute) Vitamin D deficiency (Acute) Stress incontinence (Acute) Sleep apnea (Acute) High cholesterol (Acute) Type 2 diabetes mellitus (Acute) Obesity (Acute) Anxiety (Acute) Depression (Acute) Obstructive sleep apnea on CPAP (Acute) Past Medical History Medical History (Updated 10/28/23 @ 15:38 by Juliana Moreno RN) Gastric reflux Diabetes CRISTIAN on CPAP Anxiety Depression Slow to wake up after anesthesia PCOS (polycystic ovarian syndrome) Anxiety Depression Obstructive sleep apnea on CPAP Family History Family History Mother Hypertension High cholesterol Breast cancer Macular degeneration Father Behcet's disease History of multiple strokes Brother TBI (traumatic brain injury) Osteoporosis Brother No problems noted. Brother No problems noted. Daughter PFAPA syndrome Son Stroke (cerebrum) Surgical History Surgical History Hx of wisdom tooth extraction History of surgical removal of ganglion cyst Hx of tonsillectomy History of removal of ovarian cyst Social History Social History (Updated 10/28/23 @ 10:58 by Juliana Moreno RN) Household Members: Family Housing: House Are you a primary resident care assistant to a significant other at home: Yes (10+11 year children) Do you presently have visiting nurse or other home services: No Alcohol intake: never Patient Tobacco Use Status: Never used Tobacco Use of substances other than those prescribed or required for medical reasons: No Have you been hit, kicked, punched, or otherwise hurt by someone within the past year? If so, by whom?: No Are you DNR?: No Advance Directives: No Advance Directives Information Provided: Yes Advance Directives on File: No Recently lost weight without trying: No Patient : No FDLMP: 10/28/2023 : No Poor oral hygiene: No Meds Allergies Allergy/AdvReac Type Severity Reaction Status Date / Time bupropion [From Wellbutrin] Allergy Intermediate Hives Verified 10/28/23 10:57 oxycodone [From Percocet] Allergy Intermediate Hives, rash Verified 10/28/23 10:57 pneumococcal vaccine AdvReac Severe Migraine, Verified 10/28/23 10:57 [From Pneumovax-] weakness adhesive tape AdvReac Intermediate burning Verified 10/28/23 10:57 and redness of Skin Home Medications Medication Instructions Recorded Confirmed Last Taken Type CPAP (CPAP Machine/Device) 03/17/23 10/25/23 Unknown History iron,carbonyl 65 mg-vitamin C 125 1 tab PO DAILY 03/17/23 10/28/23 Unknown History mg tablet,delayed release (Vitron-C) metformin 1,000 mg tablet 1,000 mg PO BID 03/17/23 10/28/23 Unknown History omeprazole 20 mg capsule,delayed 20 mg PO DAILY PRN 03/17/23 10/25/23 Unknown History release sertraline 100 mg tablet (Zoloft) 200 mg PO DAILY 04/09/23 10/28/23 Unknown History cholecalciferol (vitamin D3) 50 50 mcg PO DAILY 10/28/23 10/28/23 Unknown History mcg (2,000 unit) tablet (Vitamin D3) Exam Height,Weight and Vital Signs: Height 5 ft 2 in Weight 85.729 kg Pertinent Lab Results Pertinent Lab Results: Laboratory Tests 10/29/23 10/29/23 09:03 09:15 WBC 10.4 RBC 4.20 Hgb 12.3 Hct 37.0 MCV 88.1 MCH 29.3 MCHC 33.2 RDW 13.7 Plt Count 248 MPV 12.4 H Immature Gran % (Auto) 0.4 Neut % (Auto) 67.7 Lymph % (Auto) 24.7 [place] % (Auto) 5.4 Eos % (Auto) 1.1 Baso % (Auto) 0.7 Lymph # (Auto) 2.6 [place] # (Auto) 0.6 Eos # (Auto) 0.1 Baso # (Auto) 0.1 Abs Immat Gran (auto) 0.04 H Absolute Neuts (auto) 7.0 Absolute Nucleated RBC 0.000 Nucleated RBC % (auto) 0.0 PT 12.6 INR 1.0 APTT 32.7 Sodium 140 Potassium 3.9 Chloride 102 Carbon Dioxide 27 Anion Gap 15 BUN 14 Creatinine 0.80 Estim Creat Clear Calc 96.8 Estimated GFR > 60 Random Glucose 120 H Estimat Average Glucose 140 Hemoglobin A1c % 6.5 H Insulin Level 10 Calcium 9.4 Total Bilirubin 0.4 AST 30 ALT 21 Alkaline Phosphatase 70 C-Reactive Protein 1.55 H Total Protein 8.2 H Albumin 4.7 Triglycerides 174 H Cholesterol 189 LDL Cholesterol, Calc 124 H HDL Cholesterol 31 L TSH 0.48 Blood Type A Positive Antibody Screen NEGATIVE Narrative Narrative: EKG 03/2023 Vent. Rate : 072 BPM Atrial Rate : 072 BPM P-R Int : 160 ms QRS Dur : 096 ms QT Int : 404 ms P-R-T Axes : 033 057 014 degrees QTc Int : 442 ms Normal sinus rhythm Minimal voltage criteria for LVH, may be normal variant ( Sokolow-Vaughn ) Nonspecific ST abnormality Abnormal ECG No previous ECGs available Exercise Stress 06/2023 Protocol: JAIR Max HR: 179 BPM 98% of Pred: 182 BPM Max BP: 160/070 mmHG Max Work Load: 10.5 METS Exercuse stress test exercise 9 min 16 sec of Jair protocol achieving 96% MPHR and 10.5 METs, without anginal symptoms, without arrhythmias, with normotensive response to exercise, without EKG changes. Test reviewed with Dr. Grier Assessment and Plan Assessment Anesthesia Assessment: Chart Reviewed
[2023-11-16] VITALS (9 sets, daily range): BP systolic 130–148; BP diastolic 72–87; PULSE 70–99; RESP 14–20; TEMP 36.1–36.7; O2SAT 95–99; BMI 33.3
--- NOTE | 2023-11-16 07:39 | P.BOP_ITS ---
Brief Operative Note Date of Service: 11/16/23 Pre-op diagnosis: Severe obesity with comorbidities (see below) Post-op diagnosis: same (& abdominal adhesions) Procedure: INITIAL PATIENT BMI ON PRESENTATION AT OUR OFFICE: 37 kg/m2 LAST BMI BEFORE SURGERY: 35.1 kg/m2 COMORBIDITIES: sleep apnea on CPAP, non-insulin dependent diabetes, PCOS, ADHD, GERD, depression, anxiety liver fibrosis ?The patient presented to the Weight Management Program with significant obesity that was negatively impacting the patient's comorbidities as listed above.? The program is a phased program with a special focus on preoperative medical weight management to promote substantial weight loss and prepare the patients for the second phase of the program: bariatric surgery. The patient participated in an intensive weekly lifestyle ?intervention and exercise program during which the patient ?has lost between the initial office visit and the last preoperative visit 22.8 lbs, or 11.26% of initial actual body weight. It was deemed appropriate for the patient to now have bariatric surgery. In light of the current Covid-19 pandemic and the well documented strong association of obesity and increased risk of worse outcomes if infected with Covid-19 (REFERENCES: https://pubmed.ncbi.nlm.nih.gov/93312962/ ,? https://pubmed.ncbi.nlm.nih.gov/44162254/ ), any delay in undergoing bariatric surgery may lead to the patient's worsening health condition and increased?risk of more severe Covid-19 disease if infected. In addition a recent?study from [facility] published in [facility] on 11/17/2021 ([email or web address]) found that, among patients with obesity, substantial weight loss achieved with surgery was associated with improved outcomes of COVID-19 infection. The findings suggest that obesity can be a modifiable risk factor for the severity of COVID-19 infection. In addition, the patient met the BMI-criteria for bariatric surgery based on the BMI on initial presentation. The patient should not be penalized for achieving such weight loss because ?it is not sustainable long-term without surgical intervention and it was achieved in preparation for bariatric surgery ?under my direction and based on my published research ([email or web address]).[email or web address] and? https://www.soard.org/article/[email or web address](97)13415-X/pdf ) ?that a 10% preoperative weight loss improves long-term weight loss after surgery and reduces perioperative complications.? Insurance carriers such as [facility] have endorsed my recommendations ?and have included in their policies criteria to include a 10% preoperative weight loss requirement. PROCEDURE: Esophago-gastroscopy, laparoscopic lysis of adhesions, laparoscopic sleeve gastrectomy and laparoscopic gastropexy INDICATIONS: This is a 38 year-old female who was electively scheduled for laparoscopic, possibly open sleeve gastrectomy. The risks and complications of the procedure were discussed with the patient in advance, particularly the possibility of ; pulmonary embolism; staple line leak; bleeding; GERD; cardiac, pulmonary, or renal complications; as well as long-term problems such as insufficient weight loss, vitamin deficiency, strictures, or ulcers. The patient understood all the risks, and was in agreement to proceed with surgery. DESCRIPTION OF PROCEDURE: After informed consent was obtained from the patient, the patient was given preoperative antibiotics, and was transferred to the operating room. After successful induction of general anesthesia, pneumatic compression devices were placed on both lower extremities. An upper endoscopy was performed next. The oropharynx and esophagus appeared to be within normal limits. There was no diaphragmatic hernia present consistent with the findings of the preoperative upper GI. The stomach was entered. Then after all fluid and air were suctioned and the stomach was fully decompressed, the scope was withdrawn and secured in the mid esophagus. The patient was then prepped and draped in the usual sterile manner, and abdominal access was established at the right upper quadrant with the Astrid technique. A 12 mm blunt port was inserted, and the abdomen was insufflated with CO2 to a pressure of 15 mmHg. Under direct visualization, additional ports were placed, specifically two 5 mm Versi-step ports to the left upper quadrant, and a 5 mm Versi-Step port to the right upper quadrant. 1% lidocaine plain was used to infiltrate all port sites as well as all fascia defects. There were adhesions in the abdomen involving the omentum and the left anterior abdominal wall. Those were lysed completely with the ultrasonic device. Following that, the patient was placed in a steep reverse Trendelenburg position. An additional 5 mm port was placed to the right flank for the Mediflex retractor that was used to retract the left lobe of the liver. The gastro-esophageal fat pad was opened with the ultrasonic device (Thunderbeat, Olympus) and the anterior esophagus and hiatus were exposed. The angle of His was opened with the ultrasonic device the fundus of the stomach from any diaphragmatic and splenic attachments. I then opened the gastrocolic ligament between the transverse colon and the greater curvature of the stomach with the ultrasonic device to enter the lesser sac and facilitate the ligation of the short gastric vessels. I started at a mid-point along the greater curvature and using the Thunderbeat, all short gastric vessels were divided all the way to the angle of His until the left osmin was completely dissected at its entirety. I then divided the gastro-colic ligament distally to a distance of about 3-4 cm proximal to the pylorus. The stomach was then divided transversely with three Endo BABITA-45 purple and three BABITA-60 articulating orange loads using the Play2FocusIA stapler and loads. Every effort was made that the gastric sleeve had a tubular shape and an even caliber throughout. Once the sleeve resection was completed, the staple line of the gastric sleeve was reinforced with Hemoclips. The resected stomach was retrieved without difficulty from the Astrid port. A gastropexy was then performed in order to prevent postoperative GERD and partial gastric volvulus. Several interrupted 2.0 Surgidac sutures were placed between the sleeve's staple line and the previously divided greater omentum and gastro-colic ligament using the Endo-Stitch device. ?An upper endoscopy was performed. There was no narrowing at the GE junction. The scope was easily advanced all the way to the pylorus which was clearly visualized. There was no narrowing anywhere and the sleeve's caliber was even throughout. The sleeve's staple line was inspected and there was no evidence of ischemia, bleeding or dehiscence. At that point the gastroscope was withdrawn from the patient?s mouth while we were decompressing the bowel and the stomach from any remaining air. I looked into the lesser sac to see how the sleeve was situating and it was situating well. There was no bleeding from the staple line, spleen, or short gastric vessels. The Mediflex retractor was removed, and the undersurface of the liver was inspected and there was no bleeding. The patient was placed in supine position. I closed the fascial defect of the 12 mm port site with a figure of eight #1 Polysorb suture. Then 30cc Ropivacaine plain with 10 mg of Dexamethasone were used to infiltrate the fascial closure as well as all skin incisions. At this point, the abdomen was deflated, all ports were removed under direct vision, and no bleeding was noted from any of the port sites. The skin incisions were irrigated with saline and were closed with 4-0 absorbable monofilament sutures. Steri-Strips and OpSites were used to cover all incisions. The patient was extubated and was transferred in stable condition to the recovery room for further care. I was present and performed all anderson parts of the procedure. Ms. Hand was the coding assistant. There were no residents to assist with this case. Sha Hutchins MD, PhD, FACS Surgeon: David Hutchins MD Anesthesia: GETA, local and other (TAP block) Was an Metal Tester used for this Procedure?: No Metal Tester: Christina Hand Estimated blood loss (mL): 10 IV fluids (mL): 1,800 Urine output (mL): 0 Pathology: other (Stomach) Condition: stable Disposition: PACU
--- NOTE | 2023-11-16 07:43 | P.PNGS_ITS ---
Subjective Subjective Date of Service: 11/17/23 Interval history: Feels well. Mild incisional pain. She is tolerating phase 1 bariatric diet Physical Exam 2 Vital Signs: Vital Signs: BMI result Body Mass Index 34.6 GI: Inspection: Yes normal to inspection, Yes incision (clean, dry and intact) and Yes obesity Palpation (GI): Soft to palpation Extrem: Right lower extremity: normal to inspection (no calf tenderness) L eft lower extremity: normal to inspection (no calf tenderness) Objective Data Labs 11/17/23 06:10 11/17/23 06:10 Procedures Date of Service Date of Service: 11/17/23 Progress Note: A&P Assessment and plan (1) Obesity: Status: Acute Assessment and Plan: s/p laparoscopic sleeve gastrectomy, lysis of adhesions and gastropexy Doing well Will check am labs and if OK the patient will be discharged home (2) BMI 35.0-35.9,adult: Status: Acute (3) Obstructive sleep apnea on CPAP: Status: Acute (4) Type 2 diabetes mellitus: Status: Acute (5) High cholesterol: Status: Acute (6) Depression: Status: Acute (7) Anxiety: Status: Acute (8) Stress incontinence: Status: Acute (9) ADHD: Status: Acute (10) PCOS (polycystic ovarian syndrome): Status: Acute (11) GERD (gastroesophageal reflux disease): Status: Acute (12) Liver fibrosis: Status: Acute (13) S/P laparoscopic sleeve gastrectomy: Status: Acute (14) Intra-abdominal adhesions: Status: Acute Time Spent With Patient Time: Total time managing care of this patient today ____ minutes. Quality Stroke Does the patient have a stroke diagnosis?: No VTE Prior VTE?: No VTE Risk Level:: Surgical - moderate VTE Device Contraindication: Treatment Not Indicated VTE Drug Contraindication: N/A - Med Ordered
[2023-11-16 08:48] LABS: UPreg QC Valid YES; Urine Pregnancy NEGATIVE (NEGATIVE)
[2023-11-16] MEDS: Lactated Ringers 1,000 ML 999 ML IV (09:08)
[2023-11-16] MEDS: Aprepitant 32 MG/4.4 ML VIAL IVPUSH (09:09)
--- NOTE | 2023-11-16 09:23 | HO.ANESPROP2 ---
HPI - Anesthesia Eval Consult details Narrative: for gastric sleeve, PMFSH Active Problems Active Problems: All Active Problems (Updated 11/16/23 @ 07:45 by David Hutchins MD) Liver fibrosis (Acute) BMI 35.0-35.9,adult (Acute) Abnormal EKG (Acute) GERD (gastroesophageal reflux disease) (Acute) PCOS (polycystic ovarian syndrome) (Acute) ADHD (Acute) Generalized anxiety disorder (Acute) Rosacea (Acute) IBS (irritable bowel syndrome) (Acute) Vitamin D deficiency (Acute) Stress incontinence (Acute) Sleep apnea (Acute) High cholesterol (Acute) Type 2 diabetes mellitus (Acute) Obesity (Acute) Anxiety (Acute) Depression (Acute) Obstructive sleep apnea on CPAP (Acute) Past Medical History Medical History Gastric reflux Diabetes CRISTIAN on CPAP Slow to wake up after anesthesia PCOS (polycystic ovarian syndrome) Anxiety Depression Obstructive sleep apnea on CPAP Family History Family History Mother Hypertension High cholesterol Breast cancer Macular degeneration Father Behcet's disease History of multiple strokes Brother TBI (traumatic brain injury) Osteoporosis Brother No problems noted. Brother No problems noted. Daughter PFAPA syndrome Son Stroke (cerebrum) Family history of problems with anesthesia: No Surgical History Surgical History Hx of wisdom tooth extraction History of surgical removal of ganglion cyst Hx of tonsillectomy History of removal of ovarian cyst History of Problems with Anesthesia: No Social History Social History Household Members: Family Housing: House Are you a primary director long term care to a significant other at home: Yes (10+11 year children) Do you presently have visiting nurse or other home services: No Alcohol intake: never Patient Tobacco Use Status: Never used Tobacco Use of substances other than those prescribed or required for medical reasons: No Have you been hit, kicked, punched, or otherwise hurt by someone within the past year? If so, by whom?: No Are you DNR?: No Advance Directives: No Advance Directives Information Provided: Yes Advance Directives on File: No Recently lost weight without trying: No Patient : No FDLMP: 10/28/2023 : No Poor oral hygiene: No Meds Allergies Allergy/AdvReac Type Severity Reaction Status Date / Time bupropion [From Wellbutrin] Allergy Intermediate Hives Verified 10/28/23 10:57 oxycodone [From Percocet] Allergy Intermediate Hives, rash Verified 10/28/23 10:57 pneumococcal vaccine AdvReac Severe Migraine, Verified 10/28/23 10:57 [From Pneumovax-] weakness adhesive tape AdvReac Intermediate burning Verified 10/28/23 10:57 and redness of Skin Active Medications: Current Medications Lactated Ringer's (Lr) 1,000 mls @ 100 mls/hr IVCONT .Q10H VICENTE Lactated Ringer's (Lr) 1,000 mls @ 999 mls/hr IV .Q1H1M VICENTE Stop: 11/16/23 10:30 Last Admin: 11/16/23 09:08 Dose: 999 mls/hr Home Medications Medication Instructions Recorded Confirmed Last Taken Type CPAP (CPAP Machine/Device) 03/17/23 10/25/23 Unknown History iron,carbonyl 65 mg-vitamin C 125 1 tab PO DAILY 03/17/23 10/28/23 Unknown History mg tablet,delayed release (Vitron-C) metformin 1,000 mg tablet 1,000 mg PO BID 03/17/23 10/28/23 Unknown History omeprazole 20 mg capsule,delayed 20 mg PO DAILY PRN 03/17/23 10/25/23 Unknown History release sertraline 100 mg tablet (Zoloft) 200 mg PO DAILY 04/09/23 10/28/23 Unknown History cholecalciferol (vitamin D3) 50 50 mcg PO DAILY 10/28/23 10/28/23 Unknown History mcg (2,000 unit) tablet (Vitamin D3) Exam Height,Weight and Vital Signs: Height 5 ft 2 in Weight 82.645 kg Last Vital Signs Temp 98.1 F 11/16/23 08:44 Pulse 82 11/16/23 08:44 Resp 16 11/16/23 08:44 BP 131/78 11/16/23 08:44 Pulse Ox 95 11/16/23 08:44 O2 Del Method Room Air 11/16/23 08:44 Pertinent Lab Results Pertinent Lab Results: Laboratory Tests 10/29/23 10/29/23 11/16/23 09:03 09:15 08:25 WBC 10.4 RBC 4.20 Hgb 12.3 Hct 37.0 MCV 88.1 MCH 29.3 MCHC 33.2 RDW 13.7 Plt Count 248 MPV 12.4 H Immature Gran % (Auto) 0.4 Neut % (Auto) 67.7 Lymph % (Auto) 24.7 Mckenzie % (Auto) 5.4 Eos % (Auto) 1.1 Baso % (Auto) 0.7 Lymph # (Auto) 2.6 Mckenzie # (Auto) 0.6 Eos # (Auto) 0.1 Baso # (Auto) 0.1 Abs Immat Gran (auto) 0.04 H Absolute Neuts (auto) 7.0 Absolute Nucleated RBC 0.000 Nucleated RBC % (auto) 0.0 PT 12.6 INR 1.0 APTT 32.7 Sodium 140 Potassium 3.9 Chloride 102 Carbon Dioxide 27 Anion Gap 15 BUN 14 Creatinine 0.80 Estim Creat Clear Calc 96.8 Estimated GFR > 60 Random Glucose 120 H Estimat Average Glucose 140 Hemoglobin A1c % 6.5 H Insulin Level 10 Calcium 9.4 Total Bilirubin 0.4 AST 30 ALT 21 Alkaline Phosphatase 70 C-Reactive Protein 1.55 H Total Protein 8.2 H Albumin 4.7 Triglycerides 174 H Cholesterol 189 LDL Cholesterol, Calc 124 H HDL Cholesterol 31 L TSH 0.48 Urine Test NEGATIVE Blood Type A Positive Antibody Screen NEGATIVE Airway Mallampati Class: III TM Dist: >3cm Neck ROM: Full Heart: rrr Lungs: cta Assessment and Plan Assessment Anesthesia Assessment: Anesthesia Plan Discussed Final Anesthetic Review Family History of Problems with Anesthesia: No History of Problems with Anesthesia: No NPO: Yes ASA Class: III Final Preanesthetic Review: No Changes in Pt Med Stat, Meds/Allgs Chart Reviewed, Consent Obtained/Reviewed and Anes Risks/Benef Reviewed Patient Risk: Intermediate Procedure Risk: Intermediate Anesthetic Plan Anesthetic Plan: GA Disposition: Standard PACU
[2023-11-16 11:36] LABS: Glucose, Whole Blood 113 mg/dL (60-115)
--- NOTE | 2023-11-16 11:49 | PHA.MEDREC ---
Pharmacy Consult ? Medication Reconciliation Pharmacy has reviewed the medication reconciliation done by the RN.
--- NOTE | 2023-11-16 11:57 | P.DS_ITS ---
DS: Providers Provider Date of Service: 11/17/23 Primary care physician: Ana Maria Faulkner DO DS: Diagnosis Discharge Diagnosis (1) Obesity: Status: Acute (2) BMI 35.0-35.9,adult: Status: Acute (3) Obstructive sleep apnea on CPAP: Status: Acute (4) Type 2 diabetes mellitus: Status: Acute (5) High cholesterol: Status: Acute (6) Depression: Status: Acute (7) Anxiety: Status: Acute (8) Stress incontinence: Status: Acute (9) ADHD: Status: Acute (10) PCOS (polycystic ovarian syndrome): Status: Acute (11) GERD (gastroesophageal reflux disease): Status: Acute (12) Liver fibrosis: Status: Acute DS: Summary Hospital Course Hospital Course: ADMITTING DIAGNOSIS: morbid obesity, CRISTIAN, DM DISCHARGE DIAGNOSIS: same, s/p laparoscopic sleeve gastrectomy PAST SURGICAL HISTORY: ovarian cystectomy PROCEDURE: upper endoscopy, laparoscopic sleeve gastrectomy DISCHARGE SUMMARY: History of Present Illness: The patient is a 38 year-old woman with a BMI of 37.0 kg/m2 and associated co- morbidities as described above. The patient had extensive work-up, lost 12 lbs preoperatively and was electively scheduled for laparoscopic, possible open sleeve gastrectomy and gastropexy. Risks and complications of the surgery were discussed with the patient in advance, particularly the possibility of , pulmonary embolism, anastomotic leak, bleeding, bowel injury, GERD, cardiac, renal or pulmonary complications. The patient understood all the risks and was in agreement with the surgical plan. Hospital Course: The patient underwent an uneventful laparoscopic sleeve gastrectomy with gastropexy on the day of admission. Postoperatively, the patient was transferred to the surgical floor. The patient received IV Acetaminophen and IV dilaudid for pain control. Patient was started on bariatric phase 1 diet POD #0. On postoperative day one, the patient was feeling well without nausea, vomiting, fevers, or tachycardia. The patient had some mild incisional pain and the abdomen was soft. On the morning of postoperative day one, the patient was continued on 1 ounce of water or ice every half hour. During the day, the patient did fairly well, having some incisional pain, but able to ambulate adequately and to tolerate liquids well. Since the patient is doing well, we decided that the patient was ready to be discharged. The patient was given instructions to follow-up with me next week and to call my office for any fever over 101, persistent abdominal pain, nausea, vomiting, GERD, symptoms of DVT such as calf tenderness, or leg swelling, or pulmonary embolism such as chest pain or shortness of breath. The patient was also instructed to drink 40-60 ounces of liquids per day using the 1-ounce cups. The patient had been given prescriptions for Tylenol for pain, Zofran prn for nausea, and pantoprazole and carafate previously. The patient was encouraged to ambulate and use the incentive spirometer. The patient was allowed to shower, but no baths, and encouraged to stay active at home. All of these instructions were given to the patient personally. All questions were answered and the patient understood all instructions, the instructions were also given to the patient in print. Time Attestation Discharge coordination time: Less than 30 minutes Quality: Safe Use of Opioids Does Pt have an Active Cancer Diagnosis on the Problem List?: No Quality: Stroke Does the patient have a stroke diagnosis?: No Physical Exam Vital Signs: Vital Signs: Last Vital Signs Temp 98.1 F 11/16/23 08:44 Pulse 82 11/16/23 08:44 Resp 16 11/16/23 08:44 BP 131/78 11/16/23 08:44 Pulse Ox 95 11/16/23 08:44 O2 Del Method Room Air 11/16/23 08:44 BMI result Body Mass Index 33.3 DS: Data Data Completed and Pending Pending studies at discharge: Pending at discharge 11/16/23 11:37 Surgical [PTH] Routine Labs on day of discharge: Laboratory Results - last 24 hr 11/16/23 11/16/23 11/16/23 08:25 08:53 08:58 POC Glucose 113 Urine Test NEGATIVE Blood Type A Positive Antibody Screen NEGATIVE Discharge Plan Discharge Patient Disposition: Home, Self-Care Referrals: Ana Maria Faulkner DO [Primary Care Provider] - 1 Week Discharge Medications: No Action pantoprazole 40 mg tablet,delayed release (DR/EC) 40 mg PO DAILY Qty: 30 2RF sucralfate 100 mg/mL suspension 10 ml PO BID Qty: 400 2RF ondansetron 4 mg tablet,disintegrating 4 mg PO Q12H Qty: 20 0RF Rx Instructions: Only take one every 12 hours as needed if you have nausea polyethylene glycol 3350 [Miralax] 17 gram powder in packet 17 g PO DAILY Qty: 14 0RF Rx Instructions: Mix each packet with 8oz of water, Crystal light, or Gatorade zero, or Propel and do 7 packets on 10/31/23 and another 7 packets on 11/01/23 metformin 1,000 mg tablet 1,000 mg PO BID omeprazole 20 mg capsule,delayed release(DR/EC) 20 mg PO DAILY PRN (DME) CPAP Machine/Device Device See Rx Instructions .Route Rx Instructions: As directed sertraline [Zoloft] 100 mg tablet 200 mg PO DAILY Discharge Orders: Discharge Order (Routine); Ordered 11/17/23 Ordered By: Aly Li Activity on Discharge: No heavy lifting Activity Restrictions/Additional Instructions: No tub baths, sex or returning to work until discussed at first post op appointment. No exercise, alcohol, tobacco or illegal drug use. Continue to use incentive spirometer hourly while awake. Walk in home for 5- 10 minutes every 2 hours during the first week. Continue phase 1 diet today and start phase 2 diet tomorrow morning. Follow all instructions in the bariatric handbook and call with any questions. 1. Please call your doctor or come back to the emergency room should any new symptoms arise. 2. You will receive a courtesy call from [facility] 24-48 hours after discharge. 3. Activity: abstain from alcohol, practice limited stair climbing, no bending, no driving, no exercise, no illicit substances, no lifting, no sex, no tub bath, no work. 4. Diet: continue as discussed with bariatric team.. 5. Dressing Change/Wound Care: Do not change or remove surgical dressings unless they are wet or soiled. 6. Call your doctor if: - Your temperature exceeds 101.5 F - You experience excessive pain or swelling - You have an unexpected reaction to medication - You have excessive bleeding - You experience continued vomiting/nausea - Your incision begins to separate - Your incision shows signs of infection such as increased redness, swelling, excessive pain, heat, or drainage (light blood or clear fluid is normal) 7. General instructions: No lifting greater than 5 lbs for 1 week and not more than 20lbs the next 3?weeks. No driving until seen at the office in 5-7 days after surgery. If you do not move your bowels in the next 2 days, please tell?Dr. Hutchins. Please walk around your home every hour or two to prevent blood clots from forming in your legs. You do not need to wake from sleeping to walk. Please sleep in a bed or couch to prevent kinking at the hips and knees. Please take your incentive spirometer (your lung slate roofer) home with you and use it for the next few days to prevent pneumonia. You may shower, no hot tubs, baths or swimming pools.?Please follow the post op diet instructions you are?given by Dr Linda marrero? and text me daily at 5-6pm for an update.?If you have any issues or concerns or questions please communicate this to him via text.? The Celebrate shakes have all of the bariatric vitamins you need if you consume these shakes. If you are drinking other protein shakes, you will need to purchase the Celebrate multivitamins and calcium that are available in the hospital gift shop on the first floor of the [facility].??Do not take anything without first discussing with Dr Hutchins. Please make sure you are consuming at least 40 ounces of fluids per day starting the?day AFTER your discharge from the hospital. Always drink 1-2 ml per minute using the 5ml?syringe. If you drink faster you may experience?bloating,?gas pain, burping, nausea or heartburn. In that case please slow down your pace and use the syringe to?understand better the?proper?pace and volume of drinking. Do not hesitate to contact the office with any questions at . The patient's medical history has been reviewed and they are considered low risk for post op DVT and therefore DVT prophylaxis is not considered necessary. Travel after surgery was reviewed. The patient has not disclosed any travel plans during the first 30 days after surgery and they have been advised that within the first 30 days after surgery any bus, plane, train or car travel over 2 hours in duration is contraindicated due to the possibility of developing blood clots from immobility. Any travel, needs to include periods of ambulation of 10 minutes in duration every 2 hours. The patient was instructed to discuss any plans for travel during this period with their bariatric surgeon. Discharge Date/Time: 11/17/23 15:28
[2023-11-16 11:59] LABS: Glucose, Whole Blood 173 mg/dL (60-115)
[2023-11-16] MEDS: ondansetron HCL 4 MG/2 ML VIAL IVPUSH ×2 (12:30→17:42)
[2023-11-16 12:41] LABS: Hematocrit 36.1 % (37.0-47.0)
[2023-11-16 13:08] LABS: Anion Gap 21 (12-20); Blood Urea Nitrogen 10 mg/dL (9-16); Calcium 8.8 mg/dL (8.4-10.2); Carbon Dioxide 16 mmol/L (22-29); Chloride 103 mmol/L (96-108); Creatinine Clr Calc Pharmacy 88.3; Estimated Glomerular Filt Rate > 60; Glucose Random 177 mg/dL (60-115); Sodium 136 mmol/L (135-145)
[2023-11-16] MEDS: Lactated Ringers 1,000 ML 100 ML IVCONT ×2 (13:42→23:14)
[2023-11-16] MEDS: Famotidine/PF 20 MG/2 ML VIAL IVPUSH ×2 (13:43→20:57)
--- NOTE | 2023-11-16 14:10 | PHA.MEDREC ---
Pharmacy Consult ? Medication Reconciliation Pharmacy has reviewed the medication reconciliation done by the RN. Patient confirmed shes on metformin and sertraline even though claims are out dated. Patient confirmed she is no longer on jardiance, ozempic, focalin or any vitamins
[2023-11-16] MEDS: ceFAZolin Sodium/Dextrose,Iso 2 GM/50 ML PIGGYBACK IV (15:26)
[2023-11-16] MEDS: Acetaminophen 1,000 MG/100 ML PIGGYBACK 16.7 MG IV ×2 (17:19→21:59)
[2023-11-16 19:32] LABS: Glucose, Whole Blood 164 mg/dL (60-115)
[2023-11-16] MEDS: 0.9 % Sodium Chloride Flush 3 ML SYRINGE IVFLUSH (20:57)
[2023-11-17] VITALS: BP 130/68; PULSE 70; RESP 16; TEMP 36.1; O2SAT 95
[2023-11-17 03:57] VITALS: BP 130/70; PULSE 75; RESP 16; TEMP 36.1; O2SAT 96
[2023-11-17] MEDS: Acetaminophen 1,000 MG/100 ML PIGGYBACK 16.7 MG IV ×2 (04:07→09:32)
[2023-11-17 07:08] LABS: MANUAL DIFF FLAG NO
[2023-11-17 07:11] LABS: Basophils Percent Auto 0.2 % (0-2); Hematocrit 35.9 % (37.0-47.0); Hemoglobin 12.2 g/dl (12.0-16.0); Imm Gran Abs Auto 0.11 X10*3/uL (0.00-0.03); Imm Gran Pct Auto 0.6 % (0.0-0.4); Lymphocytes Absolute Auto 2.3 X10*3/uL (1.2-4.9); Lymphocytes Percent Auto 12.8 % (20-40); Mean Corpuscular Hemoglobin 29.8 pg (27.0-33.0); Mean Corpuscular Volume 87.8 fL (80.0-98.0); Mean Platelet Volume 12.2 fL (9.4-12.3); Monocytes Absolute Auto 1.3 X10*3/uL (0.1-1.2); Monocytes Percent Auto 7.2 % (2-11); Neutrophils Absolute Auto 14.3 x10*3/uL (2.0-8.3); Neutrophils Percent Auto 79.2 % (45-73); Platelet Count 297 X10*3/uL (160-400); Red Blood Count 4.09 X10*6/uL (4.20-5.50); Red Cell Distribution Width 13.7 % (11.0-16.0); White Blood Count 18.1 X10*3/uL (4.8-10.8)
[2023-11-17 07:12] VITALS: BP 134/68; PULSE 71; RESP 17; TEMP 36.1; O2SAT 97
[2023-11-17 07:23] LABS: Anion Gap 18 (12-20); Blood Urea Nitrogen 7 mg/dL (9-16); Calcium 9.1 mg/dL (8.4-10.2); Carbon Dioxide 18 mmol/L (22-29); Chloride 104 mmol/L (96-108); Creatinine Clr Calc Pharmacy 86.4; Estimated Glomerular Filt Rate > 60; Glucose Random 110 mg/dL (60-115); Potassium 3.7 mmol/L (3.3-5.1); Sodium 136 mmol/L (135-145)
[2023-11-17 07:33] LABS: Glucose, Whole Blood 108 mg/dL (60-115)
[2023-11-17] MEDS: Famotidine/PF 20 MG/2 ML VIAL IVPUSH (08:20)
[2023-11-17] MEDS: Lactated Ringers 1,000 ML 100 ML IVCONT (09:31)
[2023-11-17 11:03] LABS: Glucose, Whole Blood 114 mg/dL (60-115)
--- NOTE | 2023-11-17 11:22 | HO.POSTANES ---
Post Anesthesia Evaluation Post Anesthesia Evaluation Date of Service: 11/16/23 Vital Signs: Vital Signs Temp Pulse Resp BP Pulse Ox O2 Del Method 11/17/23 07:48 Room Air 11/17/23 07:12 96.9 F 71 17 134/68 97 Room Air 11/17/23 03:57 97.0 F 75 16 130/70 96 Room Air 11/17/23 00:00 96.9 F 70 16 130/68 95 Room Air Anesthesia: General Endotracheal-GETA Mental Status: Awake Pain Control: Satisfactory Nausea/Vomiting: None Hydration: Adequate Anesthesia-Related Issues: No Anes. Related Issues
[2023-11-17 11:51] VITALS: BP 136/74; PULSE 71; RESP 16; TEMP 36.1; O2SAT 98
--- NOTE | 2023-11-17 13:28 | MHC.CM.PN ---
Addendum entered by Jessica Dumont 11/17/23 15:10: Patient is discharged today to home self care. She arranged for her brother to provide transportation home. Original Note: Female 38 S/P Gastric sleeve. She lives with her spouse. She is independent at baseline. A copy of her HCP has been requested. DP Home self care. Patients brother will provide transportation home. Pt reports hiccops. May dc later today or tomorrow.
== END 2023-11-17 15:28 | disposition home or self-care (01) ==
LOC: HO.SSS 11:57 → HO.S3 12:09
PROVIDERS: Nurse Practitioner; Physician Assistant; PCP Pediatrics; Visit Provider Surgery
PROC: (CPT 43845; principal; 2023-11-16 10:10)
DX: E66.01 Morbid (severe) obesity due to excess calories (principal); Z68.35 Body mass index [BMI] 35.0-35.9, adult; K66.0 Peritoneal adhesions (postprocedural) (postinfection); K21.9 Gastro-esophageal reflux disease without esophagitis; K74.00 Hepatic fibrosis, unspecified; E78.00 Pure hypercholesterolemia, unspecified; G47.33 Obstructive sleep apnea (adult) (pediatric); E11.9 Type 2 diabetes mellitus without complications; E28.2 Polycystic ovarian syndrome; N39.3 Stress incontinence (female) (male); F32.A Depression, unspecified; F41.9 Anxiety disorder, unspecified; F90.9 Attention-deficit hyperactivity disorder, unspecified type; Z99.89 Dependence on other enabling machines and devices; Z79.84 Long term (current) use of oral hypoglycemic drugs; Z79.899 Other long term (current) drug therapy; Z88.5 Allergy status to narcotic agent; Z88.7 Allergy status to serum and vaccine; Z88.8 Allergy status to other drugs, medicaments and biological substances
CPT/HCPCS: 43775; 43659; 49329; 36415; 80048; 80053; 80061; 81025; 82947; 83036; 83525; 84443; 85014; 85018; 85025; 85610; 85730; 86140; 86850; 86900; 86901; 88304; 88305; 88307; 88342; 99024; A4649; C9145; J0131; J0690; J1100; J1170; J2250; J2405; J2704; J2795; J3010; J7120

== ENCOUNTER → 2023-11-16 08:02 | Outpatient (BNV) | payer OTHER, SELFPAY | PROVIDERS: PCP Pediatrics; Visit Provider Surgery | DX: E66.01 Morbid (severe) obesity due to excess calories (principal); Z68.35 Body mass index [BMI] 35.0-35.9, adult; G47.33 Obstructive sleep apnea (adult) (pediatric); E11.9 Type 2 diabetes mellitus without complications; E78.00 Pure hypercholesterolemia, unspecified; F32.A Depression, unspecified; F41.9 Anxiety disorder, unspecified; N39.3 Stress incontinence (female) (male); F90.9 Attention-deficit hyperactivity disorder, unspecified type; E28.2 Polycystic ovarian syndrome; K21.9 Gastro-esophageal reflux disease without esophagitis; K74.00 Hepatic fibrosis, unspecified | CPT/HCPCS: 43659; 43775; 99024 ==

== ENCOUNTER 2023-11-23 10:24 | Outpatient (AMB) | payer OTHER, SELFPAY ==
--- NOTE | 2023-11-23 10:39 | MHC.OFFVISWM ---
Intake VS Expanded 11/23/23 11:20 BP 117/72 Blood Pressure Location Rt brachial Blood Pressure Position Sitting Pulse 104 H Pulse Source Pulse Oximeter Temp 97.4 F Temperature Source Temporal Artery Scan Pulse Oximetry 96 Oxygen Delivery Method Room Air Height 5 ft 2 in Weight 170 lb 6.4 oz BMI 31.2 Body Fat % 37.4 Body Fat Mass 63.8 Fat Free Mass 106.4 Visceral Fat Rating 7.0 Body Water % 44.7 Body Water Mass 76.0 Muscle Mass/Score 101.0 Basal Metabolic Rate/Score 1,475 Intake Visit Reasons: (OV) PO LSG 11/16/23 Vocational Aide Required: No Allergies bupropion [From Wellbutrin] Allergy (Intermediate, Verified 11/23/23 11:22) Hives oxycodone [From Percocet] Allergy (Intermediate, Verified 11/23/23 11:22) Hives, rash pneumococcal vaccine [From Pneumovax-23] Adverse Reaction (Severe, Verified 11/23/23 11:22) Migraine, weakness adhesive tape Adverse Reaction (Intermediate, Verified 11/23/23 11:22) burning and redness of Skin Medication List - Last Reviewed 11/23/23 by Leah Tabares CMA CPAP (CPAP Machine/Device) As directed pantoprazole 40 mg PO DAILY polyethylene glycol 3350 (Miralax) 17 grams PO DAILY sertraline (Zoloft) 200 mg PO DAILY sucralfate 10 mL PO BID HPI HPI Comments History of Present Illness Details Patient is a pleasant 38-year-old female returns to the office in follow-up. She is 7 days post laparoscopic sleeve gastrectomy performed on 11/16/2023. Positive bowel movement, no significant pain. [facility] Medical History Gastric reflux Diabetes CRISTIAN on CPAP Slow to wake up after anesthesia PCOS (polycystic ovarian syndrome) Anxiety Depression Obstructive sleep apnea on CPAP Surgical History Hx of wisdom tooth extraction History of surgical removal of ganglion cyst Hx of tonsillectomy History of removal of ovarian cyst Family History Mother Hypertension High cholesterol Breast cancer Macular degeneration Father Behcet's disease History of multiple strokes Brother TBI (traumatic brain injury) Osteoporosis Brother No problems noted. Brother No problems noted. Daughter PFAPA syndrome Son Stroke (cerebrum) Social History Household Members: Family Housing: House Are you a primary health care analyst to a significant other at home: Yes (10+11 year children) Do you presently have visiting nurse or other home services: No Alcohol intake: never Patient Tobacco Use Status: Never used Tobacco service: No Physical Exam GI Inspection: Yes incision (c/d/i) Assessment & Plan Assessment & Plan (1) S/P laparoscopic sleeve gastrectomy: Code(s): Z98.84 - Bariatric surgery status Plan: POD 7 s/p LSG on 11/16/[address] Hutchins Weight loss prior to surgery was 20.6 pounds or 10.1 % TBWL. Original weight on 03/19/2023 was 202.4 pounds and op weight was 181.8 pounds. Be sure to text Dr Hutchins exactly 1 week after surgery your weight from your home scale so he can adjust your meal plan. Continue meal plan until f/u w Veena in 2 weeks May shower, no submersion in bath for another week Continue abdominal binder with activity and exercise for the next 2 weeks. Exercise prior to surgery was treadmill, may resume No abdominal exercises for 6 weeks post operatively Will be emailed link to post op video for review Reminded of the pace of drinking, 2 mL per minute, 1 oz/15 min. Coding Level of Care Code Global (15583) Diagnoses S/P laparoscopic sleeve gastrectomy Z98.84
[2023-11-23 11:20] VITALS: BP 117/72; PULSE 104; TEMP 36.3; O2SAT 96; BMI 31.2
== END 2023-11-23 11:11 | disposition home or self-care (01) ==
PROVIDERS: PCP Pediatrics; Visit Provider Physician Assistant Surgical
DX: E66.9 Obesity, unspecified (principal); Z68.31 Body mass index [BMI] 31.0-31.9, adult; Z90.3 Acquired absence of stomach [part of]; Z98.84 Bariatric surgery status
CPT/HCPCS: 99024

== ENCOUNTER 2023-12-16 11:26 | Outpatient (AMB) | payer OTHER, SELFPAY ==
--- NOTE | 2023-12-16 11:29 | MHC.OFFVISWM ---
Intake VS Expanded 12/16/23 11:35 BP 121/75 Blood Pressure Location Rt brachial Blood Pressure Position Sitting Pulse 95 Pulse Source Pulse Oximeter Temp 96.5 F L Temperature Source Tympanic Pulse Oximetry 98 Oxygen Delivery Method Room Air Height 5 ft 2 in Weight 158 lb 9.6 oz BMI 29.0 Body Fat % 36.4 Body Fat Mass 57.8 Fat Free Mass 100.8 Visceral Fat Rating 6.0 Body Water % 45.5 Body Water Mass 72.0 Muscle Mass/Score 95.6 Basal Metabolic Rate/Score 1,397 Intake Visit Reasons: (OV) PO LSG 11/16/23 Allergies bupropion [From Wellbutrin] Allergy (Intermediate, Verified 12/16/23 11:31) Hives oxycodone [From Percocet] Allergy (Intermediate, Verified 12/16/23 11:31) Hives, rash pneumococcal vaccine [From Pneumovax-23] Adverse Reaction (Severe, Verified 12/16/23 11:31) Migraine, weakness adhesive tape Adverse Reaction (Intermediate, Verified 12/16/23 11:31) burning and redness of Skin Medication List - Last Reconciled 12/16/23 by JALEN Cohn CPAP (CPAP Machine/Device) As directed diphenhydramine HCl (Benadryl) 25 mg PO BEDTIME PRN docusate sodium (Colace) 100 mg PO DAILY pantoprazole 40 mg PO DAILY polyethylene glycol 3350 (Miralax) 17 grams PO DAILY sertraline (Zoloft) 200 mg PO DAILY sucralfate 10 mL PO BID HPI HPI Comments History of Present Illness Details This?is a?38?yo female who is s/p LSG 11/16/2023. Presents for 1 month post op visit. 11.8lb weight loss since last visit 3 weeks ago.? No complaints of nausea, emesis, abdominal pain or reflux, or constipation. Pt reports episodes of hives for the past few weeks. Mostly on her back, arms, neck. Has been off metformin since surgery. A few episodes of lightheadedness but they resolve quickly and happen when she stands up quickly. Recently saw a new life sciences director who recommended she take a glucose tab or a bit of juice if her blood sugar drops, although it hasn't since surgery. Present meal plan includes: 8-10am Celebrate 1 scoop in 8oz unsweetened almond milk 11am-1pm same 2-4pm FitCrunch protein bar 5pm 4 forks of scrambled eggs or 4 tbsp GY cottage cheese 7-9pm Celebrate shake 1 scoop in 8oz unsweetened [facility] History (Updated 12/16/23 @ 11:39 by JALEN Cohn) BMI 35.0-35.9,adult Gastric reflux Diabetes CRISTIAN on CPAP Slow to wake up after anesthesia PCOS (polycystic ovarian syndrome) Anxiety Depression Obstructive sleep apnea on CPAP Surgical History (Updated 12/16/23 @ 11:38 by Madisyn Rodrigues CMA) Hx of laparoscopic partial gastrectomy Hx of wisdom tooth extraction History of surgical removal of ganglion cyst Hx of tonsillectomy History of removal of ovarian cyst Family History Mother Hypertension High cholesterol Breast cancer Macular degeneration Father Behcet's disease History of multiple strokes Brother TBI (traumatic brain injury) Osteoporosis Brother No problems noted. Brother No problems noted. Daughter PFAPA syndrome Son Stroke (cerebrum) Social History Household Members: Family Housing: House Are you a primary lawn care technician to a significant other at home: Yes (10+11 year children) Do you presently have visiting nurse or other home services: No Alcohol intake: never Patient Tobacco Use Status: Never used Tobacco service: No Assessment & Plan Assessment & Plan (1) S/P laparoscopic sleeve gastrectomy: Code(s): Z98.84 - Bariatric surgery status (2) Overweight: Code(s): E66.3 - Overweight Plan Pt will stop carafate as I believe that is the cause of her hives. She was on a PPI prior to surgery and did not experience hives. May use Benadryl for symptoms. She is getting tired of Celebrate shakes, willing to try Isopure unflavored powder. New meal plan: 8-10am Celebrate 1 scoop in 8oz unsweetened almond milk 11am-1pm Isopure 1 scoop in 8oz water 2-4pm FitCrunch protein bar 5pm 4 forks of scrambled eggs or 4 tbsp GY cottage cheese 7-9pm Isopure half scoop in 8oz water Pt will purchase MVI with iron. RTC 2 weeks. Patient is overweight and is not considered stable at this time. I spent a total of 30 minutes reviewing/updating records, examining the patient and counseling the patient on weight management as detailed above. Coding Level of Care Code Est Pt Level 4 (20287) Diagnoses S/P laparoscopic sleeve gastrectomy Z98.84 Overweight E66.3
[2023-12-16 11:35] VITALS: BP 121/75; PULSE 95; TEMP 35.8; O2SAT 98; BMI 29.0
== END 2023-12-16 12:28 | disposition home or self-care (01) ==
PROVIDERS: PCP Pediatrics; Visit Provider Physician Assistant Surgical
DX: E66.3 Overweight (principal); Z68.29 Body mass index [BMI] 29.0-29.9, adult; Z90.3 Acquired absence of stomach [part of]; Z98.84 Bariatric surgery status
CPT/HCPCS: 99024

== ENCOUNTER 2023-12-28 12:01 | Outpatient (AMB) | payer OTHER, SELFPAY ==
--- NOTE | 2023-12-28 12:03 | MHC.OFFVISWM ---
Intake VS Expanded 12/28/23 12:18 Height 5 ft 2 in Weight 158 lb 6 oz BMI 29.0 Intake Visit Reasons: (TELEPHONE) PO LSG 11/16/23 Allergies bupropion [From Wellbutrin] Allergy (Intermediate, Verified 12/16/23 11:31) Hives oxycodone [From Percocet] Allergy (Intermediate, Verified 12/16/23 11:31) Hives, rash pneumococcal vaccine [From Pneumovax-23] Adverse Reaction (Severe, Verified 12/16/23 11:31) Migraine, weakness adhesive tape Adverse Reaction (Intermediate, Verified 12/16/23 11:31) burning and redness of Skin Medication List - Last Reconciled 12/28/23 by JALEN Cohn CPAP (CPAP Machine/Device) As directed diphenhydramine HCl (Benadryl) 25 mg PO BEDTIME PRN docusate sodium (Colace) 100 mg PO DAILY pantoprazole 40 mg PO DAILY polyethylene glycol 3350 (Miralax) 17 grams PO DAILY sertraline (Zoloft) 200 mg PO DAILY HPI HPI Comments History of Present Illness Details This?is a?38?yo female who is s/p LSG 11/16/2023. Presents for 6 week post op visit. Weight at last visit on 12/16/2023 was 158.6 pounds, weight today is same.? No complaints of nausea, emesis, abdominal pain or reflux. Using Colace for constipation. Pt has started taking Zyrtec, stopped carafate and rash has improved. Present meal plan includes: 8-10am Celebrate 1 scoop in 8oz unsweetened almond milk 11am-1pm Isopure 1 scoop in 8oz water 2-4pm FitCrunch protein bar 5pm 4 forks of scrambled eggs or 4 tbsp GY cottage cheese 7-9pm Isopure half scoop in 8oz water has been mixing 1 scoop of Isopure with Belarusian yogurt and eating slowly over the course of the day Exercise routine includes: kids had COVID, couldn't exercise PFSH Medical History (Updated 12/16/23 @ 11:39 by JALEN Cohn) BMI 35.0-35.9,adult Gastric reflux Diabetes CRISTIAN on CPAP Slow to wake up after anesthesia PCOS (polycystic ovarian syndrome) Anxiety Depression Obstructive sleep apnea on CPAP Surgical History (Updated 12/16/23 @ 11:38 by Madisyn Rodrigues CMA) Hx of laparoscopic partial gastrectomy Hx of wisdom tooth extraction History of surgical removal of ganglion cyst Hx of tonsillectomy History of removal of ovarian cyst Family History Mother Hypertension High cholesterol Breast cancer Macular degeneration Father Behcet's disease History of multiple strokes Brother TBI (traumatic brain injury) Osteoporosis Brother No problems noted. Brother No problems noted. Daughter PFAPA syndrome Son Stroke (cerebrum) Social History Household Members: Family Housing: House Are you a primary school child care attendant to a significant other at home: Yes (10+11 year children) Do you presently have visiting nurse or other home services: No Alcohol intake: never Patient Tobacco Use Status: Never used Tobacco service: No Assessment & Plan Assessment & Plan (1) Overweight: Code(s): E66.3 - Overweight (2) S/P laparoscopic sleeve gastrectomy: Code(s): Z98.84 - Bariatric surgery status (3) PCOS (polycystic ovarian syndrome): Code(s): E28.2 - Polycystic ovarian syndrome (4) Type 2 diabetes mellitus: Code(s): E11.9 - Type 2 diabetes mellitus without complications (5) High cholesterol: Code(s): E78.00 - Pure hypercholesterolemia, unspecified Plan Pt really does not want to use shakes anymore. Suggested a plan of 2 bars, 2 Belarusian yogurts, and 1/2 scoop Isopure to get to protein goal of 65g/day. Reiterated the importance of exercise with goal 2000 calories burned per week. She is traveling to [place] and wanted to know good options for easy proteins- recommended protein bars. RTC 3 weeks. Patient is overweight and is not considered stable at this time. I spent a total of 30 minutes reviewing/updating records, examining the patient and counseling the patient on weight management as detailed above. Telehealth Telehealth Location of provider rendering services: other Location of patient: address on file Patient Identification confirmed using: Name, : Yes Telehealth method: voice only Patient verbally consented to treatment: Yes Patient verbally consented to billing insurance company: Yes Patient informed of any privacy concerns related to visit: Yes Minutes spent on Phone/Video with Pt.: 20 Coding Level of Care Code Tele Est Pt Level 4 (41618) Diagnoses Overweight E66.3 S/P laparoscopic sleeve gastrectomy Z98.84 PCOS (polycystic ovarian syndrome) E28.2 Type 2 diabetes mellitus E11.9 High cholesterol E78.00
[2023-12-28 12:18] VITALS: BMI 29.0
== END 2023-12-28 12:37 | disposition home or self-care (01) ==
LOC: HO.HBS 12:01
PROVIDERS: PCP Pediatrics; Visit Provider Physician Assistant Surgical
DX: E66.3 Overweight (principal); Z68.29 Body mass index [BMI] 29.0-29.9, adult; Z90.3 Acquired absence of stomach [part of]; Z98.84 Bariatric surgery status
CPT/HCPCS: 99024

== ENCOUNTER 2024-01-20 10:57 | Outpatient (AMB) | payer OTHER, SELFPAY ==
--- NOTE | 2024-01-20 11:15 | A.OFFVIS_ITS ---
Intake VS Expanded 01/20/24 11:21 BP 116/65 Blood Pressure Location Rt brachial Blood Pressure Position Sitting Pulse 73 Pulse Source Pulse Oximeter Temp 97.9 F Temperature Source Temporal Artery Scan Pulse Oximetry 99 Oxygen Delivery Method Room Air Height 5 ft 2 in Weight 152 lb 9.6 oz BMI 27.9 Body Fat % 32.1 Body Fat Mass 49.0 Fat Free Mass 103.6 Visceral Fat Rating 5.0 Body Water % 48.6 Body Water Mass 74.0 Muscle Mass/Score 98.4 Basal Metabolic Rate/Score 1,416 Intake Visit Reasons: PO LSG 11/16/23 Allergies bupropion [From Wellbutrin] Allergy (Intermediate, Verified 01/20/24 11:17) Hives oxycodone [From Percocet] Allergy (Intermediate, Verified 01/20/24 11:17) Hives, rash pneumococcal vaccine [From Pneumovax-23] Adverse Reaction (Severe, Verified 01/20/24 11:17) Migraine, weakness adhesive tape Adverse Reaction (Intermediate, Verified 01/20/24 11:17) burning and redness of Skin Medication List - Last Reconciled 01/20/24 by JALEN Cohn diphenhydramine HCl (Benadryl) 25 mg PO BEDTIME PRN docusate sodium (Colace) 100 mg PO DAILY pantoprazole 40 mg PO DAILY polyethylene glycol 3350 (Miralax) 17 grams PO DAILY sertraline (Zoloft) 200 mg PO DAILY HPI HPI Comments History of Present Illness Details This?is a?38?yo female who is s/p LSG 11/16/2023. Presents for 2 month post op visit. Weight at last visit on 12/28/2023 was 158.6 pounds with a BMI of 29, weight today is 152.6 pounds, representing a 6 pound weight loss with a BMI today of 27.9.? No complaints of nausea, emesis, abdominal pain or reflux, or constipation. Was in [place] since last visit. Was checking blood sugars before vacation, 90s- 100s in AM. Present meal plan includes: 2 bars, 2 Occitan yogurts, and small amoun t of solid food (chicken, salmon) to get to protein goal of 65g/day knows her fluid intake is low, got a large water bottle taking MVI All meals last 20 - 30 minutes and does not drink and eat at the same time. Exercise routine includes: treadmill- 3x/week adopted a puppy, will be walking more plans to increase intensity of exercise [facility] Medical History (Updated 12/16/23 @ 11:39 by JALEN Cohn) BMI 35.0-35.9,adult Gastric reflux Diabetes CRISTIAN on CPAP Slow to wake up after anesthesia PCOS (polycystic ovarian syndrome) Anxiety Depression Obstructive sleep apnea on CPAP Surgical History Hx of laparoscopic partial gastrectomy Hx of wisdom tooth extraction History of surgical removal of ganglion cyst Hx of tonsillectomy History of removal of ovarian cyst Family History Mother Hypertension High cholesterol Breast cancer Macular degeneration Father Behcet's disease History of multiple strokes Brother TBI (traumatic brain injury) Osteoporosis Brother No problems noted. Brother No problems noted. Daughter PFAPA syndrome Son Stroke (cerebrum) Social History Household Members: Family Housing: House Are you a primary healthcare advisory services manager to a significant other at home: Yes (10+11 year children) Do you presently have visiting nurse or other home services: No Alcohol intake: never Patient Tobacco Use Status: Never used Tobacco service: No Physical Exam Vital Signs: Last Vital Signs Temp 97.9 F 01/20/24 11:21 Pulse 73 01/20/24 11:21 BP 116/65 01/20/24 11:21 Pulse Ox 99 01/20/24 11:21 Oxygen Delivery Method Room Air 01/20/24 11:21 BMI result Body Mass Index 27.9 Assessment & Plan Assessment & Plan (1) Overweight: Code(s): E66.3 - Overweight (2) S/P laparoscopic sleeve gastrectomy: Code(s): Z98.84 - Bariatric surgery status Plan Pt to continue same meal plan, no more protein drinks/Isopure. Discussed importance of increasing formal exercise. Will work on increasing hydration. RtC 4 weeks. Patient is overweight and is not considered stable at this time. I spent a total of 30 minutes reviewing/updating records, examining the patient and counseling the patient on weight management as detailed above. Coding Level of Care Code Est Pt Level 4 (72453) Diagnoses Overweight E66.3 S/P laparoscopic sleeve gastrectomy Z98.84
[2024-01-20 11:21] VITALS: BP 116/65; PULSE 73; TEMP 36.6; O2SAT 99; BMI 27.9
== END 2024-01-20 11:50 | disposition home or self-care (01) ==
PROVIDERS: PCP Pediatrics; Visit Provider Physician Assistant Surgical
DX: E66.3 Overweight (principal); Z68.27 Body mass index [BMI] 27.0-27.9, adult; Z90.3 Acquired absence of stomach [part of]; Z98.84 Bariatric surgery status
CPT/HCPCS: 99024

== ENCOUNTER 2024-08-07 12:43 | Outpatient (AMB) | payer OTHER, SELFPAY ==
--- NOTE | 2024-08-07 12:32 | MHC.OFFVISWM ---
VS Expanded 08/07/24 12:35 Height 5 ft 2 in Weight 161 lb BMI 29.4 Intake Visit Reasons: (TV) PO LSG 11/16/23 Allergies bupropion [From Wellbutrin] Allergy (Intermediate, Verified 01/20/24 11:17) Hives oxycodone [From Percocet] Allergy (Intermediate, Verified 01/20/24 11:17) Hives, rash pneumococcal vaccine [From Pneumovax-23] Adverse Reaction (Severe, Verified 01/20/24 11:17) Migraine, weakness adhesive tape Adverse Reaction (Intermediate, Verified 01/20/24 11:17) burning and redness of Skin Medication List - Last Reconciled 08/07/24 by JALEN Cohn No Known Home Meds HPI Comments Details: This?is a?39?yo female who is s/p LSG 11/16/2023. Presents for 9 month post op visit. Weight at last visit on 01/20/2024 was 152.6 pounds with a BMI of 27.9, weight today is 161 pounds, representing a 8.4 pound weight gain with a BMI today of 29.4.? No complaints of nausea, emesis, abdominal pain or reflux, or constipation. 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 Having a hard time getting exercise in. Leaves house early, gets home after 5:30 or later. Sometimes snacks on higher carb/sugar foods due to convenience. Present meal plan includes: breakfast- yogurt or eggs lunch- fully cooked chicken breast packets (24g) with fruit or veg dinner- whatever I'm doing for the family in small portions- chicken, tacos has protein bars available at work taking MVI Exercise routine includes: sometimes will walk at lunchtime has a treadmill [facility] Medical History (Updated 12/16/23 @ 11:39 by JALEN Cohn) BMI 35.0-35.9,adult Gastric reflux Diabetes CRISTIAN on CPAP Slow to wake up after anesthesia PCOS (polycystic ovarian syndrome) Anxiety Depression Obstructive sleep apnea on CPAP Surgical History Hx of laparoscopic partial gastrectomy Hx of wisdom tooth extraction History of surgical removal of ganglion cyst Hx of tonsillectomy History of removal of ovarian cyst Family History Mother Hypertension High cholesterol Breast cancer Macular degeneration Father Behcet's disease History of multiple strokes Brother TBI (traumatic brain injury) Osteoporosis Brother No problems noted. Brother No problems noted. Daughter PFAPA syndrome Son Stroke (cerebrum) Social History Household Members: Family Housing: House Are you a primary caregivers non medical to a significant other at home: Yes (10+11 year children) Do you presently have visiting nurse or other home services: No Alcohol intake: never Patient Tobacco Use Status: Never used Tobacco service: No Telehealth Telehealth Telehealth Platform: Telephone Location of provider rendering services: practice address Location of patient: address on file Patient Identification confirmed using: Name, : Yes Telehealth method: voice only Patient verbally consented to treatment: Yes Patient verbally consented to billing insurance company: Yes Patient informed of any privacy concerns related to visit: Yes Minutes spent on Phone/Video with Pt.: 16 Assessment & Plan Assessment & Plan (1) Overweight: Code(s): E66.3 - Overweight Category: Medical (2) S/P laparoscopic sleeve gastrectomy: Code(s): Z98.84 - Bariatric surgery status Category: Surgical Plan Two meal plan options given based on pt's current protein powder supply at home: Each day have- 1 Fitcrunch bar, 1 meal of 4f/4f, and either: 1 Premier shake with 1 scoop powder in 8oz UAM plus 1 Isopure shake in 8oz water, or 1 Celebrate shake with 2 scoops in 8oz UAM and 1 shake with 1 scoop in 8oz UAM Pt will work on increasing exercise, use treadmill at home. Labs ordered. RTC for previously scheduled appt 09/11. Pt will text me weekly to check in. I spent a total of 30 minutes reviewing/updating records, examining the patient and counseling the patient on weight management as detailed above. Orders: Orders Insulin Today Z98.84 - Bariatric surgery status Hemoglobin A1c Today Z98.84 - Bariatric surgery status Lipid Panel Today Z98.84 - Bariatric surgery status IRON PROFILE Today Z98.84 - Bariatric surgery status Zinc Today Z98.84 - Bariatric surgery status Vitamin B1 Today Z98.84 - Bariatric surgery status Vitamin D 25-OH Total Today Z98.84 - Bariatric surgery status Complete Blood Count Auto Diff Today Z98.84 - Bariatric surgery status Comprehensive Met. Panel Today Z98.84 - Bariatric surgery status Vitamin B12 and Folate Today Z98.84 - Bariatric surgery status C Reactive Protein Today Z98.84 - Bariatric surgery status Vitamin A Today Z98.84 - Bariatric surgery status TSH reflex Free T4 Today Z98.84 - Bariatric surgery status Ferritin Today Z98.84 - Bariatric surgery status
[2024-08-07 12:35] VITALS: BMI 29.4
== END 2024-08-07 12:59 | disposition home or self-care (01) ==
LOC: HO.HBS 12:43
PROVIDERS: PCP Pediatrics; Visit Provider Physician Assistant Surgical
DX: E66.3 Overweight (principal); Z98.84 Bariatric surgery status
CPT/HCPCS: 99214

== ENCOUNTER 2024-09-11 11:25 | Outpatient (AMB) | payer OTHER, SELFPAY ==
--- NOTE | 2024-09-11 11:31 | MHC.OFFVISWM ---
VS Expanded 09/11/24 11:37 BP 130/67 Blood Pressure Location Rt brachial Blood Pressure Position Sitting Pulse 82 Pulse Source Pulse Oximeter Temp 97.9 F Temperature Source Temporal Artery Scan Pulse Oximetry 99 Oxygen Delivery Method Room Air Height 5 ft 2 in Weight 161 lb BMI 29.4 Body Fat % 32.3 Body Fat Mass 52.0 Fat Free Mass 109.0 Visceral Fat Rating 6.0 Body Water % 48.47 Body Water Mass 77.8 Muscle Mass/Score 103.4 Basal Metabolic Rate/Score 1,483 Intake Visit Reasons: (OV) PO LSG 11/16/23 Allergies bupropion [From Wellbutrin] Allergy (Intermediate, Verified 09/11/24 11:33) Hives oxycodone [From Percocet] Allergy (Intermediate, Verified 09/11/24 11:33) Hives, rash pneumococcal vaccine [From Pneumovax-23] Adverse Reaction (Severe, Verified 09/11/24 11:33) Migraine, weakness adhesive tape Adverse Reaction (Intermediate, Verified 09/11/24 11:33) burning and redness of Skin Medication List - Last Reconciled 09/11/24 by JALEN Cohn No Known Home Meds HPI Comments Details: This?is a?39?yo female who is s/p LSG 11/16/2023. Presents for 10 month post op visit. Weight is unchanged since last OV 1 month ago.? No complaints of nausea, emesis, abdominal pain or reflux, or constipation. One of her best friends last month, going down the big slide at the [place] [employer] and coded. Having issues with billing with [facility]. Wants detailed bills but reports had difficulty getting them sent to her. No longer on diabetes meds, last HgbA1C was 6.2 recently. Present meal plan includes: 1 Fitcrunch bar, 1 meal of 4f/4f, and either: 1 Premier shake with 1 scoop powder in 8oz UAM plus 1 Isopure shake in 8oz water, or 1 Celebrate shake with 2 scoops in 8oz UAM and 1 shake with 1 scoop in 8oz UAM Exercise routine includes: has a treadmill, plans to restart using Pt reports issues with excess skin of both abdomen and upper thighs. Excess skin of abdomen feels very heavy and puts pressure on pubic bone/area. [facility] Medical History (Updated 12/16/23 @ 11:39 by JALEN Cohn) BMI 35.0-35.9,adult Gastric reflux Diabetes CRISTIAN on CPAP Slow to wake up after anesthesia PCOS (polycystic ovarian syndrome) Anxiety Depression Obstructive sleep apnea on CPAP Surgical History Hx of laparoscopic partial gastrectomy Hx of wisdom tooth extraction History of surgical removal of ganglion cyst Hx of tonsillectomy History of removal of ovarian cyst Family History Mother Hypertension High cholesterol Breast cancer Macular degeneration Father Behcet's disease History of multiple strokes Brother TBI (traumatic brain injury) Osteoporosis Brother No problems noted. Brother No problems noted. Daughter PFAPA syndrome Son Stroke (cerebrum) Social History Household Members: Family Housing: House Are you a primary pediatric care coordinator to a significant other at home: Yes (10+11 year children) Do you presently have visiting nurse or other home services: No Alcohol intake: never Patient Tobacco Use Status: Never used Tobacco service: No Assessment & Plan Assessment & Plan (1) Overweight: Code(s): E66.3 - Overweight Category: Medical (2) S/P laparoscopic sleeve gastrectomy: Code(s): Z98.84 - Bariatric surgery status Category: Surgical Plan Will order remaining labs not ordered by PCP- CRP, TSH, vit A, vit B1, zinc. Tentative goal weight in 140s. Reviewed body composition measurements, pt with healthy body fat % and high muscle mass. Restart MVI. Resume previous meal plan as it worked well for pt previously, she will also restart exercise. Gave her contact info to text photos of bills to help resolve billing matter. RTC early November for annual.
[2024-09-11 11:37] VITALS: BP 130/67; PULSE 82; TEMP 36.6; O2SAT 99; BMI 29.4
== END 2024-09-11 12:12 | disposition home or self-care (01) ==
PROVIDERS: PCP Pediatrics; Visit Provider Physician Assistant Surgical
DX: E66.3 Overweight (principal); Z68.29 Body mass index [BMI] 29.0-29.9, adult; Z90.3 Acquired absence of stomach [part of]; Z98.84 Bariatric surgery status
CPT/HCPCS: 99213